=== PATIENT | female | born 1945 | race Caucasian/White ===

== ENCOUNTER 2018-10-25 11:30 | Emergency (ER) | payer BC ==
--- OUTSIDE RECORDS SUMMARY | 2018-10-25 11:35 | XMS REPORT | Clinical Summary ---
:1945 Author Organization [facility] Address [address] [place] [address] Care Team Providers Name Role Phone Asked, No Pcp Primary Care Provider Unavailable Allergies Active Allergy Reactions Severity Noted Date Comments Adhesive 05/19/2017 Povidone-Iodine Itching 05/25/2017 Flu Vaccine 2011 (36 Mos+)(Pf) 05/25/2017 Latex Itching 05/25/2017 Medications Medication Sig Dispensed Refills Start Date End Date Status levothyroxine Take 50 mcg by 0 Active (SYNTHROID, LEVOXYL) 50 mouth every mcg tablet morning. loratadine (CLARITIN) 10 Take 10 mg by 0 Active mg tablet mouth daily. LORATADINE (CLARITIN Take by mouth. 0 Active ORAL) Active Problems Problem Noted Date Multinodular goiter 05/25/2017 Social History Tobacco Use Types Packs/Day Years Used Date Never Smoker Smokeless Tobacco: Never Used Alcohol Use Drinks/Week oz/Week Comments No Sex Assigned at Date Recorded Not on file Job Start Date Occupation Industry Not on file Not on file Not on file Travel History Travel Start Travel End No recent travel history available. Last Filed Vital Signs Not on file Plan of Treatment Health Maintenance Due Date Last Done Comments BREAST CANCER SCREENING 1996 COLONOSCOPY SCREENING 1996 SHINGLES VACCINES (#1) 1996 65+ PNEUMOCOCCAL VACCINE (1 of 2 - PCV13) 10/21/2011 INFLUENZA VACCINE 11/30/2018 Results Not on fileafter 10/24/2017 Insurance Payer Benefit Plan / Subscriber ID Effective Dates Phone Address Type Group MEDICARE MEDICARE PART A xxxxxxxxxx 2017-Present [place], [place] Medicare MEDICARE MEDICARE PART A xxxxxxxxxx 2011-Present [place], [place] Medicare BCBS BCBS CHOICE xxxxxxxxxxxxxxx 2016-Present PPO PPO/F[employer]ERAL EMPL PPO BCBS BCBS CHOICE xxxxxxxxxxxxxxx 2016-Present PPO PPO/FEDERAL EMPL PPO ([place]) [place] [address] Advance Directives Patient has advance care planning documents on file. For more information, please contact:Danny Rousseau[address] [place] [address]
--- NOTE | 2018-10-25 12:07 | RAD REPORT ---
EXAM DESCRIPTION: CT - Ct Stroke Brain Wo Cont - 10/25/2018 11:56 am CLINICAL HISTORY: r/o cva Headache, drowsiness, CVA symptomology COMPARISON: HEAD BRAIN W O CONTRAST dated 08/31/1998 TECHNIQUE: All CT scans are performed using dose optimization technique as appropriate and may inclu de automated exposure control or mA/KV adjustment according to patient size. FINDINGS: No intracranial hemorrhage, hydrocephalus or extra-axial fluid collection.No areas of brai n edema or evidence of midline shift. The paranasal sinuses and mastoids are essentially clear. The calvarium is intact. IMPRESSION: No acute intracranial abnormality. The findings were discussed with BENNY Snyder on 10/25/2018 at 11:45 a.m. by telephone.
[2018-10-25 12:09] LABS: Basophils % 0.8 % (0-1.3); Eosinophils % 1.3 % (0-4.4); Hematocrit 47.3 % (36.0-45.0); Lymphocytes % 34.8 % (15.3-44.8); MPV 9.5 fL (7.6-11.3); Monocytes % 6.1 % (3.3-12.3); RBC Red Blood Cell Count 5.27 M/uL (3.86-4.86)
[2018-10-25] MEDS ORDERED: ONDANSETRON 4 MG/2 ML VIAL ONE ×3 (12:10→12:30)
[2018-10-25 12:13] LABS: Protime INR 0.89
[2018-10-25 12:18] LABS: Potassium 3.6 mmol/L (3.5-5.1)
--- NOTE | 2018-10-25 12:22 | RAD REPORT ---
EXAM DESCRIPTION: RAD - Chest Single View - 10/25/2018 12:12 pm CLINICAL HISTORY: weakness Chest pain. COMPARISON: CHEST SINGLE VIEW dated 07/18/2012; CHEST SINGLE VIEW dated 04/15/2012 FINDINGS: Portable technique limits examination quality. Small rounded opacity is present in the left lung base which may represent a small area of developing infiltrate/aspiration. A small mass is not excluded. The heart is normal in size. No displaced fract ures.CT chest followup would be useful for further assessment.
[2018-10-25] MEDS ORDERED: MECLIZINE HCL 12.5 MG TAB ONE (12:24)
[2018-10-25] MEDS ORDERED: DIAZEPAM 2 MG TABLET ONE (12:24)
--- NOTE | 2018-10-25 12:24 | EKG ---
Test Date: 2018-10-25 Test Time: 11:52:04 B2B Appointment Setter: DWIGHT MEASUREMENT RESULTS: Intervals: Rate: 83 DC: 184 QRSD: 96 QT: 454 QTc: 533 [place]: P: 72 DC: 184 QRS: -41 T: 44 INTERPRETIVE STATEMENTS: Sinus rhythm with occasional premature supraventricular complexes Left axis deviation Abnormal ECG Compared to ECG 04/15/2012 05:36:26 Sinus arrhythmia no longer present PAC s now present Electronically Signed On 10-25-18 12:23:24 CDT by Malcolm Carvalho
[2018-10-25] MEDS ORDERED: DIAZEPAM 10 MG/2 ML INJ SYRINGE ONE (12:31)
[2018-10-25] MEDS ORDERED: PROMETHAZINE 25 MG/ML VIAL ONE ×4 (13:20→20:40)
--- NOTE | 2018-10-25 14:21 | RAD REPORT ---
EXAM DESCRIPTION: CT - Head angio - 10/25/2018 2:13 pm CLINICAL HISTORY: DIZZINESS Headache, drowsiness, CVA symptomology COMPARISON: Ct Stroke Brain Wo Cont dated 10/25/2018; HEAD BRAIN W O CONTRAST dated 08/31/1998 TECHNIQUE: CT angiography of the head was performed with MIPs. All CT scans are performed using dose optimization technique as appropriate and may include automated exposure control or mA/KV adjustment according to patient size. FINDINGS: No evidence of aneurysm is detected. No flow-limiting stenosis or vascular malformation id entified. Antegrade flow is seen in the vertebral arteries. The vertebral arteries patent, with mild left-sided dominance. The visualized dural venous sinuses are patent. IMPRESSION: No significant flow abnormality is detected.
--- NOTE | 2018-10-25 14:23 | RAD REPORT ---
EXAM DESCRIPTION: CT - Neck Angio - 10/25/2018 2:14 pm CLINICAL HISTORY: dizziness Headache, drowsiness, CVA symptomology. COMPARISON: CT HEAD CSPINE MPR WO CONTRAST dated 07/18/2012 TECHNIQUE: CT angiography of the neck vessels was performed with MIPs. All CT scans are performed using dose optimization technique as appropriate and may include automated exposure control or mA/KV adjustment according to patient size. FINDINGS: A left aortic arch is identified with normal three vessel configuration of the great vesse ls. No significant flow abnormality is seen of the common carotid bilaterally. No significant stenosis is identified involving the cervical segments of both internal carotid arteri es. Mild atheromatous plaquing is present involving both carotid bulbs. Normal flow is seen within both vertebral arteries, with left-sided dominant vertebral artery noted. IMPRESSION: No significant flow abnormality of the neck vessels is identified.
--- NOTE | 2018-10-25 14:38 | EDPHYS ---
Physician Documentation [facility] Name: Ryann Barajas Age: 73 yrs Sex: Female : 1945 Arrival Date: 10/25/2018 Time: 11:33 Bed 24 Private MD: Kaushik Horner V ED Physician Mahad Saavedra HPI: 10/25 11:55 This 73 yrs old Female presents to ER via Wheelchair with complaints of jr8 Nausea, Dizziness. 11:55 Onset: The symptoms/episode began/occurred acutely, today. Associated signs and jr8 symptoms: Pertinent positives:. 11:55 The patient presents to the emergency department with a speech or higher order brain jr8 function problem, aphasia, that is mild. Onset: The symptoms/episode began/occurred acutely, today, at 10:30. Context: occurred at home, occurred while the patient was at rest. Associated signs and symptoms: Pertinent positives: dizziness, nausea. Severity of symptoms: At their worst the symptoms were moderate in the emergency department the symptoms are unchanged. Patient's baseline: Neuro: alert and fully oriented, Motor: no deficits, Ambulation: walks without assistance, Speech: normal. Current symptoms: Currently, the patient is not experiencing any symptoms, the patient feels back to baseline, no decreased level of consciousness, no confusion, no dysphasia, no headache, no paralysis, no visual changes. The patient has not experienced similar symptoms in the past. The patient has not recently seen a physician. Family stated that patient had sudden onset of trouble talking, numbness to left arm, and dizziness. Has had vetigo in past but never has had symptoms like this in past. Historical: - Allergies: 11:50 No Known Allergies; aa5 - Home Meds: 11:50 levothyroxine 100 mcg tab once daily [Active]; aa5 - PMHx: 11:50 vertigo; Thyroid problem; aa5 - PSHx: 11:50 Thyroidectomy; aa5 - Immunization history:: Flu vaccine status is unknown. - Ebola Screening: : No symptoms or risks identified at this time. - Social history:: Smoking status: unknown. ROS: 11:55 Eyes: Negative for injury, pain, redness, and discharge, ENT: Negative for injury, jr8 pain, and discharge, Neck: Negative for injury, pain, and swelling, Cardiovascular: Negative for chest pain, palpitations, and edema, Respiratory: Negative for shortness of breath, cough, wheezing, and pleuritic chest pain, Abdomen/GI: Negative for abdominal pain, diarrhea, and constipation. Positive for nausea and vomiting Back: Negative for injury and pain, MS/Extremity: Negative for injury and deformity, Skin: Negative for injury, rash, and discoloration. 11:55 Neuro: Positive for dizziness, numbness, speech changes. Exam: 11:55 Eyes: Pupils equal round and reactive to light, extra-ocular motions intact. Lids and jr8 lashes normal. Conjunctiva and sclera are non-icteric and not injected. Cornea within normal limits. Periorbital areas with no swelling, redness, or edema. ENT: Nares patent. No nasal discharge, no septal abnormalities noted. Tympanic membranes are normal and external auditory canals are clear. Oropharynx with no redness, swelling, or masses, exudates, or evidence of obstruction, uvula midline. Mucous membranes moist. Neck: Trachea midline, no thyromegaly or masses palpated, and no cervical lymphadenopathy. Supple, full range of motion without nuchal rigidity, or vertebral point tenderness. No Meningismus. Cardiovascular: Regular rate and rhythm with a normal S1 and S2. No gallops, murmurs, or rubs. Normal PMI, no JVD. No pulse deficits. Respiratory: Lungs have equal breath sounds bilaterally, clear to auscultation and percussion. No rales, rhonchi or wheezes noted. No increased work of breathing, no retractions or nasal flaring. Abdomen/GI: Soft, non-tender, with normal bowel sounds. No distension or tympany. No guarding or rebound. No evidence of tenderness throughout. Back: No spinal tenderness. No costovertebral tenderness. Full range of motion. MS/ Extremity: Pulses equal, no cyanosis. Neurovascular intact. Full, normal range of motion. 11:55 Skin: Appearance: Color: normal in color, Temperature: cool, Moisture: diaphoretic. 11:55 Neuro: Orientation: to person, place, time \T\ situation. Mentation: is normal, Memory: is normal, immediate memory is intact, recent memory is intact, remote memory is intact, Cranial nerves: CN I not tested, CN II- XII are normal as tested, visual min are intact. extraocular movements are intact, Facial palsy and sensory deficits are absent. Speech is clear and appropriate. Tongue strength is normal, Cerebellar function: dysmetria is noted on the left, Motor: moves all fours, strength is 5/5 in all extremities, Sensation: no obvious gross deficits, Gait: not tested. seizure activity, is not displayed by the patient, Abnormal movements: there are no abnormal movements. Vital Signs: 11:36 BP 180 / 66; Pulse 89; Resp 16; Temp 97.5; Pulse Ox 98% on R/A; Weight 81.65 kg; Height aj 5 ft. 4 in. (162.56 cm); 11:48 BP 155 / 89; Pulse 81; Resp 16 S; Temp 96.1(A); Pulse Ox 98% on R/A; Pain 0/10; aa5 12:00 BP 121 / 98; Pulse 81; Resp 14 S; Pulse Ox 98% on R/A; Pain 0/10; aa5 12:16 BP 137 / 56; Pulse 82; Resp 14 S; Pulse Ox 97% on R/A; Pain 0/10; aa5 12:30 BP 134 / 69; Pulse 81; Resp 12 S; Pulse Ox 98% on 2 lpm NC; Pain 0/10; aa5 13:02 BP 147 / 94; Pulse 75; Resp 21 S; Pulse Ox 100% on R/A; mg2 13:58 BP 153 / 90; Pulse 75; Resp 18; Pulse Ox 100% on R/A; mg2 14:31 BP 128 / 75; Pulse 82; Resp 18; Temp 96.1(A); Pulse Ox 100% 3 lpm ; mg2 16:45 BP 149 / 80; Pulse 87; Resp 18; Temp 97.8; Pulse Ox 100% on R/A; mg2 18:21 BP 122 / 91; Pulse 87; Resp 18; Temp 97.6(A); Pulse Ox 100% 3 lpm ; mg2 19:30 BP 136 / 76; Pulse 85; Resp 17 S; Temp 98.5(A); Pulse Ox 100% on 3 lpm NC; cc3 20:30 BP 126 / 73; Pulse 86; Resp 18 S; Pulse Ox 100% on 3 lpm NC; cc3 11:36 Body Mass Index 30.90 (81.65 kg, 162.56 cm) 11:48 Unable to obtain oral or temporal temperature at this time. aa5 14:31 warm blanket given to the patient. mg2 NIH Stroke Scale Scores: 11:48 NIHSS Score: 1 aa5 11:55 NIHSS Score: 1 jr8 MDM: 11:46 Patient medically screened. 8 12:00 ED course: Patient has NIH of one. Possible that it is small posterior circulation jr8 strove vs. Vertigo. Symptoms improving and now without speech deficit or any other focal deficit. tPA not advised at this time due to improving mild symptoms . 13:02 ED course: MRI delayed because we cannot get patient to stop vomiting . 8 14:34 Data reviewed: vital signs, nurses notes, lab test result(s), EKG, radiologic studies, [facility] CT scan, plain films. Data interpreted: Pulse oximetry: on. Counseling: I had a detailed discussion with the patient and/or guardian regarding: the historical points, exam findings, and any diagnostic results supporting the discharge/admit diagnosis, lab results, radiology results, the need for further work-up and treatment in the hospital. ED course: Consulted Dr. Hui who will see patient but Dr. Horner requests transfer at this time . 18:04 ED course: [facility] decline due to capacity. Dr. Reynoso accepted at [facility] . [facility] 10/25 12:02 Order name: Basic Metabolic Panel; Complete Time: 12:34 10/25 12:02 Order name: CBC with Diff; Complete Time: 12:14 10/25 11:53 Order name: CT Stroke Brain w/o Contrast; Complete Time: 12:34 ca 10/25 12:02 Order name: Protime (+inr); Complete Time: 12:34 10/25 12:02 Order name: Ptt, Activated; Complete Time: 12:34 10/25 15:25 Order name: Urine Dipstick--Ancillary (enter results); Complete Time: 15:52 ca 10/25 12:02 Order name: Stroke CXR 1 View; Complete Time: 12:34 10/25 12:05 Order name: MRI - Brain Wo Cont; Complete Time: 17:10 10/25 13:51 Order name: CT Head Angio; Complete Time: 14:30 10/25 13:51 Order name: CT Neck Angio; Complete Time: 14:30 jr8 10/25 12:02 Order name: EKG; Complete Time: 12:04 10/25 12:02 Order name: Accucheck; Complete Time: 12:07 10/25 12:02 Order name: Cardiac monitoring; Complete Time: 12:07 10/25 12:02 Order name: EKG - Nurse/Tech; Complete Time: 12:07 10/25 12:02 Order name: IV Saline Lock; Complete Time: 12:07 10/25 12:02 Order name: Labs collected and sent; Complete Time: 12:07 10/25 12:02 Order name: NPO; Complete Time: 12:10/25 12:02 Order name: O2 Per Protocol; Complete Time: 12:10/25 12:02 Order name: O2 Sat Monitoring; Complete Time: 12:07 10/25 12:02 Order name: Stroke Swallow Screen; Complete Time: 14:21 aa5 Administered Medications: 11:56 Drug: Zofran 4 mg {Note: VO received at 1155.} Route: IVP; Site: right antecubital; aa5 12:20 Follow up: Response: No adverse reaction; Vomiting unchanged mg2 12:21 Drug: Valium 2 mg Route: IVP; Site: right antecubital; aa5 14:41 Follow up: Response: No adverse reaction mg2 12:21 Drug: Zofran 4 mg Route: IVP; Site: right antecubital; aa5 13:00 Follow up: Response: No adverse reaction; Nausea unchanged mg2 13:09 Drug: Phenergan 6.25 mg Route: IVP; Site: right antecubital; mg2 13:45 Follow up: Response: No adverse reaction; Marked relief of symptoms mg2 13:57 Drug: Phenergan 6.25 mg Route: IVP; Site: right antecubital; mg2 14:40 Follow up: Response: No adverse reaction; Marked relief of symptoms mg2 14:20 Drug: Meclizine 25 mg Route: PO; mg2 17:10 Follow up: Response: No adverse reaction; Marked relief of symptoms mg2 16:35 Drug: Phenergan 6.25 mg Route: IVP; Site: right antecubital; ca1 17:07 Follow up: Response: No adverse reaction; Marked relief of symptoms mg2 17:20 Drug: foLIC Acid 1 mg Route: IVPB; Site: right antecubital; mg2 18:21 Follow up: IV Status: Completed infusion mg2 17:20 Drug: Aspirin 81 mg Route: PO; mg2 18:21 Follow up: Response: No adverse reaction mg2 18:29 Drug: Lipitor 80 mg Route: PO; mg2 19:02 Follow up: Response: No adverse reaction; Marked relief of symptoms mg2 20:35 Drug: Phenergan 6.25 mg Route: IVP; Site: right antecubital; cc3 20:45 Follow up: Response: No adverse reaction; Nausea is decreased cc3 Point of Care Testing: Blood Glucose: 11:50 Blood Glucose: 155 mg/dL; aa5 Ranges: Critical Glucose Levels:Adult <50 mg/dl or >400 mg/dl <40 mg/dl or >180 mg/dl Disposition: 10/26 10:25 Co-signature as Attending Physician, Mahad Saavedra MD I agree with the assessment and kdr plan of care. Disposition: 10/25/18 17:[address] [facility]. Diagnosis are Cerebral infarction, Vertigo of central origin. - Reason for transfer: Higher level of care. - Accepting physician is Dr. Reynoso. - Condition is Stable. - Problem is new. - Symptoms have improved. NIH Stroke Scale - NIH Stroke Score Date: 10/25/2018 Time: 11:48 Total Score = 1 1a. Level of Consciousness (LOC) - 0(Alert) 1b. Level of Consciousness (LOC) (Year \T\ Age) - 0(Both) 1c. LOC Commands (Open \T\ Closes Eyes/Tile Decorator) - 0(Both) 2. Best Gaze (Lateral Gaze Paresis) - 0(Normal) 3. Visual Field Loss - 0(No visual loss) 4. Facial Palsy - 0(Normal) 5a. Left Arm: Motor (10-second hold) - 0(No drift) 5b. Right Arm: Motor (10-second hold) - 0(No drift) 6a. Left Leg: Motor (5-second hold - always test supine) - 0(No drift) 6b. Right Leg: Motor (5-second hold - always test supine) - 0(No drift) 7. Limb Ataxia (finger/nose \T\ heel/luu - test with eyes open) - 1(Present in one limb) 8. Sensory Loss (pinprick arms/legs/face) - 0(Normal) 9. Best Language: Aphasia (description/naming/reading) - 0(No aphasia) 10. Dysarthria (speech clarity - read or repeat words) - 0(Normal) 11. Extinction and Inattention (visual/tactile/auditory/spatial/personal) - 0(No abnormality) Initials: aa5 NIH Stroke Scale - NIH Stroke Score Date: 10/25/2018 Time: 11:55 Total Score = 1 1a. Level of Consciousness (LOC) - 0(Alert) 1b. Level of Consciousness (LOC) (Year \T\ Age) - 0(Both) 1c. LOC Commands (Open \T\ Closes Eyes/Tile Decorator) - 0(Both) 2. Best Gaze (Lateral Gaze Paresis) - 0(Normal) 3. Visual Field Loss - 0(No visual loss) 4. Facial Palsy - 0(Normal) 5a. Left Arm: Motor (10-second hold) - 0(No drift) 5b. Right Arm: Motor (10-second hold) - 0(No drift) 6a. Left Leg: Motor (5-second hold - always test supine) - 0(No drift) 6b. Right Leg: Motor (5-second hold - always test supine) - 0(No drift) 7. Limb Ataxia (finger/nose \T\ heel/luu - test with eyes open) - 1(Present in one limb) 8. Sensory Loss (pinprick arms/legs/face) - 0(Normal) 9. Best Language: Aphasia (description/naming/reading) - 0(No aphasia) 10. Dysarthria (speech clarity - read or repeat words) - 0(Normal) 11. Extinction and Inattention (visual/tactile/auditory/spatial/personal) - 0(No abnormality) Initials: jr8 Signatures: Dispatcher [employer] EDMS Mahad Saavedra MD MD [facility] Rupinder Maynard RN RN aa5 Stuart Leal PA PA jr8 Shawn Olmedo RN RN mg2 Elizabeth Barrera cc3 Beryl Fitzgerald RN RN ca1 Corrections: (The following items were deleted from the chart) 10/25 14:35 12:20 ED course: Patient has NIH of one. Possible that it is small posterior jr8 circulation strove vs. Vertigo. Symptoms improving and now without speech deficit or any other focal deficit. tPA not advised at this time due to improving mild symptoms . jr8 17:17 14:36 Hospitalization Ordered by Kaushik Horner MD for Inpatient Admission. jr8 Preliminary diagnosis is Dizziness; Vomiting; Cerebral infarction. Bed requested for Telemetry/MedSurg (Inpatient). Status is Inpatient Admission. Condition is Stable. Problem is new. Symptoms have improved. UTI on Admission? No. jr8 18:05 14:34 ED course: Consulted Dr. Hui who will see patient . jr8 jr8 18:21 17:17 10/25/2018 17:[address] [facility]. jr8 Diagnosis is Cerebral infarction; Vertigo of central origin. Reason for transfer: Higher level of care. Accepting physician is [facility]. Condition is Stable. Problem is new. Symptoms have improved. jr8 20:46 18:21 10/25/2018 17:[address] [facility]. cc3 Diagnosis is Cerebral infarction; Vertigo of central origin. Reason for transfer: Higher level of care. Accepting physician is Dr. Reynoso. Condition is Stable. Problem is new. Symptoms have improved. jr8
--- NOTE | 2018-10-25 14:38 | ER ---
Nurse's Notes [facility] Name: Ryann Barajas Age: 73 yrs Sex: Female : 1945 Arrival Date: 10/25/2018 Time: 11:33 Bed 24 Private MD: Kaushik Horner V Diagnosis: Cerebral infarction;Vertigo of central origin Presentation: 10/25 11:36 Presenting complaint: Patient states: Dizziness, headache, N/V that started 1 hour ago. aj Reports numbness to left hand, Patient able to move left hand with no difficulty in triage. 11:36 Acuity: MORIS 2 aj 11:36 Onset of symptoms was October 25, 2018 at 10:30. aj 11:37 An acute neurological deficit is present. Pre-hospital glucose is not applicable to aa5 this patient. 11:37 Transition of care: patient was not received from another setting of care. Risk aa5 Assessment: Do you want to hurt yourself or someone else? Patient reports no desire to harm self or others. Initial Sepsis Screen: Does the patient meet any 2 criteria? No. Patient's initial sepsis screen is negative. Does the patient have a suspected source of infection? No. Patient's initial sepsis screen is negative. Care prior to arrival: None. 11:37 Method Of Arrival: Wheelchair aa5 Triage Assessment: 11:48 The onset of the patients symptoms was October 25, 2018 at 10:30. aa5 Stroke Activation: Symptom onset < 3 hours Physician: Stroke Attending; Name: ; Notified At: ; Arrived At: Physician: Chief Stroke Resident; Name: ; Notified At: ; Arrived At: Physician: Stroke Resident; Name: ; Notified At: ; Arrived At: Physician: ED Attending; Name: ; Notified At: ; Arrived At: Physician: ED Resident; Name: ; Notified At: ; Arrived At: Historical: - Allergies: 11:50 No Known Allergies; aa5 - Home Meds: 11:50 levothyroxine 100 mcg tab once daily [Active]; aa5 - PMHx: 11:50 vertigo; Thyroid problem; aa5 - PSHx: 11:50 Thyroidectomy; aa5 - Immunization history:: Flu vaccine status is unknown. - Ebola Screening: : No symptoms or risks identified at this time. - Social history:: Smoking status: unknown. Screenin:00 Abuse screen: Denies threats or abuse. Nutritional screening: No deficits noted. aa5 Tuberculosis screening: No symptoms or risk factors identified. Fall Risk Fall in past 12 months (25 points). Secondary diagnosis (15 points) dizziness at this time . IV access (20 points). Total Llamas Fall Scale indicates High Risk Score (45 or more points). Fall prevention measures have been instituted. Side Rails Up X 2 Placed Close to Nursing Station. Assessment: 11:37 Reassessment: Pt taken to CT via wheelchair, accompanied by Gauri Manzanares RN. aa5 11:46 T-PA (Activase) Screening: Indications: No evidence of intracranial hemorrhage or CT of aa5 head and no evidence of peripheral hemorrhage or recent CVA: Yes. 11:48 Reassessment: Pt back from CT. aa5 11:48 General: Appears uncomfortable, Behavior is calm, cooperative. Pain: Denies pain. aa5 Neuro: Level of Consciousness is awake, alert, obeys commands, Oriented to person, place, time, situation, Emergency Service Worker are equal bilaterally Moves all extremities. Speech is normal, Facial symmetry appears normal, Pupils are PERRLA, Reports dizziness, generalized weakness. . Denies blurred vision paresthesias numbness headache. Cardiovascular: Heart tones S1 S2 present Rhythm is regular. Respiratory: Airway is patent Respiratory effort is even, unlabored, Respiratory pattern is regular, symmetrical. GI: Abdomen is round non-distended, Bowel sounds present X 4 quads. Abd is soft and non tender X 4 quads. Reports nausea, vomiting. : No signs and/or symptoms were reported regarding the genitourinary system. EENT: No signs and/or symptoms were reported regarding the EENT system. Derm: Skin is diaphoretic, Skin is pale, Skin temperature is cool. Musculoskeletal: Range of motion: intact in all extremities. 11:48 VAN Scoring: Arm Drift: Patients demonstrates NO arm weakness. Patient is VAN Negative. aa5 12:20 Reassessment: Pt c/o nausea. Pt refusing bedside swallow screen. PA notified of pt's aa5 refusal for bedside swallow screen and notified of inability to administer PO medications at this time. See MAR. . 12:20 Neuro: Level of Consciousness is awake, alert, obeys commands, Oriented to person, aa5 place, time, situation, Emergency Service Worker are equal bilaterally Moves all extremities. Speech is normal, Facial symmetry appears normal, Pupils are PERRLA. Respiratory: Airway is patent Respiratory effort is even, unlabored, Respiratory pattern is regular, symmetrical. Derm: Skin is clammy, Skin is pale, Skin temperature is cool. 12:22 Reassessment: O2 sat noted to be 82% RA, RR 8, pt instructed to take deep breaths, O2 aa5 being administered via non-rebreather and O2 sat increased to 100%. . 12:23 Reassessment: device repair technician at bedside. BENNY was notified of O2 sat decrease after Valium aa5 administration. MRI on hold at this time. . 12:30 Reassessment: Pt drowsy, awakens easily to verbal stimuli, pt reports nausea and aa5 dizziness has improved. O2 now via NC per BENNY. Pt tolerating well at this time. Pt's at bedside. . 12:50 Reassessment: Patient is alert, oriented x 3, equal unlabored respirations, skin aa5 warm/dry/pink. Pt tolerating NC well, RR normal. MRI notified that pt is ready for transport. . 13:59 Reassessment: [phone] (). mg2 14:29 Patient has been NPO before screening. The patient is alert, and able to follow mg2 commands. The patient does not exhibit slurred or garbled speech. The patient is not exhibiting difficulty speaking. The patient does not exhibit difficulty understanding words. The patient is able to swallow own secretions with no drooling or need for suction. Patient tolerated one teaspoon of water. No drooling, immediate coughing, gurgling, or clearing of the throat was noted. The patient tolerated 90mL of water. No drooling, immediate coughing, gurgling, or clearing of the throat was noted. The patient passed the bedside swallow screening. Oral medications may be given as ordered. Contact Physician for further diet orders. 14:29 Provider notified of bedside swallow screening results: Stuart ZAPATA. mg2 14:30 Reassessment: accompanied patient to ct scan for ct angio of head and neck. mg2 14:39 Reassessment: patient agreed to be admitted by BENNY iglliland. mg2 15:03 Reassessment: MRI called but they still have patient on the table. mg2 16:44 Reassessment: accompanied patient to MRI. ca1 18:22 Reassessment: patient agreed to be transferred to [facility]. mg2 19:30 General: Appears in no apparent distress. comfortable, Behavior is calm, cooperative, cc3 appropriate for age. Pain: Denies pain. Neuro: Level of Consciousness is awake, alert, obeys commands, Oriented to person, place, time, situation, Appropriate for age Emergency Service Worker are equal bilaterally Moves all extremities. Speech is normal, Facial symmetry appears normal, Pupils are PERRLA, Intact Denies blurred vision paresthesias numbness headache. Cardiovascular: Denies chest pain, Heart tones S1 S2 present Patient's skin is warm and dry. Rhythm is regular. Respiratory: Airway is patent Respiratory effort is even, unlabored, Respiratory pattern is regular, symmetrical. GI: Abdomen is round non-distended, Bowel sounds present X 4 quads. Abd is soft and non tender X 4 quads. : No signs and/or symptoms were reported regarding the genitourinary system. EENT: No signs and/or symptoms were reported regarding the EENT system. Derm: Skin is intact, is healthy with good turgor, Skin is pink, warm \T\ dry. normal, Skin temperature is warm. Musculoskeletal: Circulation, motion, and sensation intact. Range of motion: intact in all extremities. 19:30 Reassessment: Patient appears in no apparent distress at this time. Patient and/or cc3 family updated on plan of care and expected duration. Pain level reassessed. Patient is alert, oriented x 3, equal unlabored respirations, skin warm/dry/pink. Received this female patient from morning shift LUIGI Escobar as a case of acute left cerebellar infarct for transfer to [facility]. LUIGI Escobar said she contacted [facility] but was told to call after 10 minutes because the nurse who will receive is not yet ready. Patient with IV cannula gauge 18 at the right ACV saline locked. Patient denies pain at this time. Patient states feeling better. Patient states symptoms have improved. 19:35 Reassessment: Patient appears in no apparent distress at this time. Patient and/or cc3 family updated on plan of care and expected duration. Pain level reassessed. Patient is alert, oriented x 3, equal unlabored respirations, skin warm/dry/pink. Report called and handed over to LUIGI Humphrey for continuity of care. Transfer form completed and signed by the patient herself. Ambulance contacted for transport. 20:30 Reassessment: Patient appears in no apparent distress at this time. Patient and/or cc3 family updated on plan of care and expected duration. Pain level reassessed. Patient is alert, oriented x 3, equal unlabored respirations, skin warm/dry/pink. [facility] came for patient transport. BENNY Leal ordered for Phenergan before the patient leaves. Patient denies pain at this time. 20:45 Reassessment: Patient appears in no apparent distress at this time. Patient and/or cc3 family updated on plan of care and expected duration. Pain level reassessed. Patient is alert, oriented x 3, equal unlabored respirations, skin warm/dry/pink. Patient left ER for transfer to [facility] vitally stable via [facility] stretcher with her . No valuables left bedside. Patient denies pain at this time. Patient states feeling better. Patient states symptoms have improved. Vital Signs: 11:36 BP 180 / 66; Pulse 89; Resp 16; Temp 97.5; Pulse Ox 98% on R/A; Weight 81.65 kg; Height aj 5 ft. 4 in. (162.56 cm); 11:48 BP 155 / 89; Pulse 81; Resp 16 S; Temp 96.1(A); Pulse Ox 98% on R/A; Pain 0/10; aa5 12:00 BP 121 / 98; Pulse 81; Resp 14 S; Pulse Ox 98% on R/A; Pain 0/10; aa5 12:16 BP 137 / 56; Pulse 82; Resp 14 S; Pulse Ox 97% on R/A; Pain 0/10; aa5 12:30 BP 134 / 69; Pulse 81; Resp 12 S; Pulse Ox 98% on 2 lpm NC; Pain 0/10; aa5 13:02 BP 147 / 94; Pulse 75; Resp 21 S; Pulse Ox 100% on R/A; mg2 13:58 BP 153 / 90; Pulse 75; Resp 18; Pulse Ox 100% on R/A; mg2 14:31 BP 128 / 75; Pulse 82; Resp 18; Temp 96.1(A); Pulse Ox 100% 3 lpm ; mg2 16:45 BP 149 / 80; Pulse 87; Resp 18; Temp 97.8; Pulse Ox 100% on R/A; mg2 18:21 BP 122 / 91; Pulse 87; Resp 18; Temp 97.6(A); Pulse Ox 100% 3 lpm ; mg2 19:30 BP 136 / 76; Pulse 85; Resp 17 S; Temp 98.5(A); Pulse Ox 100% on 3 lpm NC; cc3 20:30 BP 126 / 73; Pulse 86; Resp 18 S; Pulse Ox 100% on 3 lpm NC; cc3 11:36 Body Mass Index 30.90 (81.65 kg, 162.56 cm) aj 11:48 Unable to obtain oral or temporal temperature at this time. aa5 14:31 warm blanket given to the patient. mg2 NIH Stroke Scale Scores: 11:48 NIHSS Score: 1 aa5 11:55 NIHSS Score: 1 jr8 ED Course: 11:33 Patient arrived in ED. as 11:33 Kaushik Horner MD is Private Physician. as 11:37 Triage completed. aj 11:44 Rupinder Maynard, LUIGI is Primary Nurse. aa5 11:46 Stuart Leal PA is PHCP. jr8 11:46 Mahad Saavedra MD is Attending Physician. jr8 11:48 Patient has correct armband on for positive identification. Placed in gown. Bed in low aa5 position. Call light in reach. Side rails up X2. Adult w/ patient. residential monitor on. Pulse ox on. NIBP on. 11:48 Arm band placed on. aa5 11:50 EKG done, by wellfield technician. reviewed by Stuart ZAPATA. tc 11:51 Initial lab(s) drawn, by ca, sent to lab. Inserted saline lock: 18 gauge in right aa5 antecubital area, using aseptic technique. Blood collected. 11:56 CT Stroke Brain w/o Contrast In Process Unspecified. EDMS 12:10 X-ray completed. Portable x-ray completed in exam room. Patient tolerated procedure sw well. 12:13 Stroke CXR 1 View In Process Unspecified. EDMS 12:55 Report given to LUIGI Escobar. aa5 14:13 CT Head Angio In Process Unspecified. EDMS 14:13 CT Neck Angio In Process Unspecified. EDMS 14:30 No provider procedures requiring assistance completed. mg2 14:35 Kaushik Horner MD is Hospitalizing Provider. jr8 15:19 Door closed. Warm blanket given. Assisted with bedpan. mg2 16:30 MRI - Brain Wo Cont In Process Unspecified. EDMS 20:45 Patient transferred, IV remains in place. cc3 Administered Medications: 11:56 Drug: Zofran 4 mg {Note: VO received at 1155.} Route: IVP; Site: right antecubital; aa5 12:20 Follow up: Response: No adverse reaction; Vomiting unchanged mg2 12:21 Drug: Valium 2 mg Route: IVP; Site: right antecubital; aa5 14:41 Follow up: Response: No adverse reaction mg2 12:21 Drug: Zofran 4 mg Route: IVP; Site: right antecubital; aa5 13:00 Follow up: Response: No adverse reaction; Nausea unchanged mg2 13:09 Drug: Phenergan 6.25 mg Route: IVP; Site: right antecubital; mg2 13:45 Follow up: Response: No adverse reaction; Marked relief of symptoms mg2 13:57 Drug: Phenergan 6.25 mg Route: IVP; Site: right antecubital; mg2 14:40 Follow up: Response: No adverse reaction; Marked relief of symptoms mg2 14:20 Drug: Meclizine 25 mg Route: PO; mg2 17:10 Follow up: Response: No adverse reaction; Marked relief of symptoms mg2 16:35 Drug: Phenergan 6.25 mg Route: IVP; Site: right antecubital; ca1 17:07 Follow up: Response: No adverse reaction; Marked relief of symptoms mg2 17:20 Drug: foLIC Acid 1 mg Route: IVPB; Site: right antecubital; mg2 18:21 Follow up: IV Status: Completed infusion mg2 17:20 Drug: Aspirin 81 mg Route: PO; mg2 18:21 Follow up: Response: No adverse reaction mg2 18:29 Drug: Lipitor 80 mg Route: PO; mg2 19:02 Follow up: Response: No adverse reaction; Marked relief of symptoms mg2 20:35 Drug: Phenergan 6.25 mg Route: IVP; Site: right antecubital; cc3 20:45 Follow up: Response: No adverse reaction; Nausea is decreased cc3 Point of Care Testing: Blood Glucose: 11:50 Blood Glucose: 155 mg/dL; aa5 Ranges: Output: 15:20 Urine: 200ml (Voided); Total: 200ml. mg2 Outcome: 14:36 Decision to Hospitalize by Provider. jr8 17:17 ER care complete, transfer ordered by . jr8 20:45 Transferred by ground EMS to [facility], Transfer form completed. cc3 20:45 Condition: stable 20:45 Instructed on the need for transfer, Demonstrated understanding of instructions. 20:46 Patient left the ED. cc3 NIH Stroke Scale - NIH Stroke Score Date: 10/25/2018 Time: 11:48 Total Score = 1 1a. Level of Consciousness (LOC) - 0(Alert) 1b. Level of Consciousness (LOC) (Year \T\ Age) - 0(Both) 1c. LOC Commands (Open \T\ Closes Eyes/Car Rental Agency Manager) - 0(Both) 2. Best Gaze (Lateral Gaze Paresis) - 0(Normal) 3. Visual Field Loss - 0(No visual loss) 4. Facial Palsy - 0(Normal) 5a. Left Arm: Motor (10-second hold) - 0(No drift) 5b. Right Arm: Motor (10-second hold) - 0(No drift) 6a. Left Leg: Motor (5-second hold - always test supine) - 0(No drift) 6b. Right Leg: Motor (5-second hold - always test supine) - 0(No drift) 7. Limb Ataxia (finger/nose \T\ heel/luu - test with eyes open) - 1(Present in one limb) 8. Sensory Loss (pinprick arms/legs/face) - 0(Normal) 9. Best Language: Aphasia (description/naming/reading) - 0(No aphasia) 10. Dysarthria (speech clarity - read or repeat words) - 0(Normal) 11. Extinction and Inattention (visual/tactile/auditory/spatial/personal) - 0(No abnormality) Initials: aa5 NIH Stroke Scale - NIH Stroke Score Date: 10/25/2018 Time: 11:55 Total Score = 1 1a. Level of Consciousness (LOC) - 0(Alert) 1b. Level of Consciousness (LOC) (Year \T\ Age) - 0(Both) 1c. LOC Commands (Open \T\ Closes Eyes/Car Rental Agency Manager) - 0(Both) 2. Best Gaze (Lateral Gaze Paresis) - 0(Normal) 3. Visual Field Loss - 0(No visual loss) 4. Facial Palsy - 0(Normal) 5a. Left Arm: Motor (10-second hold) - 0(No drift) 5b. Right Arm: Motor (10-second hold) - 0(No drift) 6a. Left Leg: Motor (5-second hold - always test supine) - 0(No drift) 6b. Right Leg: Motor (5-second hold - always test supine) - 0(No drift) 7. Limb Ataxia (finger/nose \T\ heel/luu - test with eyes open) - 1(Present in one limb) 8. Sensory Loss (pinprick arms/legs/face) - 0(Normal) 9. Best Language: Aphasia (description/naming/reading) - 0(No aphasia) 10. Dysarthria (speech clarity - read or repeat words) - 0(Normal) 11. Extinction and Inattention (visual/tactile/auditory/spatial/personal) - 0(No abnormality) Initials: sintia Signatures: Dispatcher [employer] EDMS Gauri Manzanares, RN RN Kaela Malcolm Audri, RN RN aa5 Stuart Leal PA PA jr8 Herlinda Babin, smoke and flame specialist EKG Ttc Emily Mai Michele, RN RN mg2 Elizabeth Barrera cc3 Beryl Fitzgerald RN RN ca1 Corrections: (The following items were deleted from the chart) 12:41 12:30 BP 134 / 69; Pulse 81bpm; Resp 12bpm; Spontaneous; Pulse Ox 100% 02 2% aa5 Non-rebreather mask; Pain 0/10; aa5 14:42 14:31 Pulse 82bpm; Resp 18bpm; Pulse Ox 100% 3 lpm; Temp 96.1F Axillary; warm mg2 blanket given to the patient. ; mg2 17:07 16:45 Pulse 87bpm; Resp 18bpm; Pulse Ox 100% RA; Temp 97.8F; ca1 mg2
[2018-10-25 15:44] LABS: Urine Blood NEGATIVE (NEG); Urine Glucose TRACE (NEG); Urine Protein NEGATIVE (NEG); Urine Specific Gravity 1.015 (1.005-1.030); Urine pH 7.5 (5.0-7.0)
--- NOTE | 2018-10-25 16:55 | RAD REPORT ---
EXAM DESCRIPTION: MRI - Brain Wo Cont - 10/25/2018 4:35 pm CLINICAL HISTORY: Numbness COMPARISON: October 25, [address] TECHNIQUE: Axial, sagittal, and coronal magnetic images of the brain were obtained. Contrast was not requested FINDINGS: Diffusion-weighted/ADC mapping demonstrates a small areas of abnormal signal within the left cerebell ar vermis measuring a few millimeters having the appearance of acute infarction. . Small areas of abnormal signal within the right cerebellum has the appearance of old infarcts. Mild signal within periventricular, deep and subcortical white matter likely ischemic changes seconda ry to small vessel disease The ventricles are normal caliber. An extra-axial fluid collection is not present The sinuses and mastoids are clear. IMPRESSION: Small acute left cerebellar infarct
[2018-10-25] MEDS ORDERED: ASPIRIN 81 MG CHEWABLE TABLET ONE (17:32)
[2018-10-25] MEDS ORDERED: FOLIC ACID 5 MG/ML VIAL ONE (17:33)
[2018-10-25] MEDS ORDERED: NA CHLORIDE 0.9% 50 ML IV ONE (17:33)
[2018-10-25] MEDS ORDERED: ATORVASTATIN 20 MG TAB ONE (18:39)
[2018-10-25 21:06] VITALS: O2SAT 100
[2018-10-25 21:13] VITALS: BP 122/91; TEMP 97.6
== END 2018-10-25 20:46 | disposition short-term general hospital (02) ==
LOC: ER 11:30
DX: I63.9 Cerebral infarction, unspecified (principal); H81.49 Vertigo of central origin, unspecified ear; E07.9 Disorder of thyroid, unspecified
CPT/HCPCS: 36415; 70450; 70496; 70498; 70551; 71045; 80048; 81003; 85025; 85610; 85730; 93005; 96365; 96375; 99285; J2405; J2550; J3360; Q9967

== ENCOUNTER 2019-04-16 06:57 | Day surgery (SDC) | payer BC ==
[2019-04-13 11:16] LABS: Absolute Lymphocytes (CBC) 2.2 K/uL (0.7-4.9); Basophils % 1.1 % (0-1.3); Lymphocytes % 26.6 % (15.3-44.8); RBC Red Blood Cell Count 4.89 M/uL (3.86-4.86)
[2019-04-13 11:21] LABS: Protime INR 0.92
[2019-04-13 11:44] LABS: Potassium 4.4 mmol/L (3.5-5.1)
--- NOTE | 2019-04-13 11:55 | RAD REPORT ---
EXAM DESCRIPTION: Ramón Bruce And Lena (2 Views)04/13/2019 11:23 am CLINICAL HISTORY: Preop for cardiac catheterization/hypertension COMPARISON: September 2018 FINDINGS: A few areas of scarring are present within the left lung base The lungs appear clear of acute infiltrate. The heart is normal size Loop recorder in place IMPRESSION: No acute abnormalities displayed
--- OUTSIDE RECORDS SUMMARY | 2019-04-16 06:59 | XMS REPORT | Summary of Care ---
:1945 Author Organization [facility] [place] [address] Care Team Providers Name Role Phone Kaushik Horner MD Primary Care Provider Reason for Visit Reason Comments Cardiology Follow-up Encounter Details Date Type Department Care Team Description [facility] [id number] [place] [address] [address] [place] [address] [phone] Allergies Active Allergy Reactions Severity Noted Date Comments Adhesive 05/19/2017 Flu Virus Vaccine 05/25/2017 Latex Itching 05/25/2017 Povidone-Iodine Itching 05/25/2017 documented as of this encounter (statuses as of 12/22/2018) Medications Medication Sig Dispensed Refills Start Date End Date Status levothyroxine Take 1 Tab by 40 Tab 0 03/09/2018 Active (SYNTHROID) 112 MCG mouth daily. tablet levothyroxine TAKE 1 TABLET BY 1 12/11/2018 Active (SYNTHROID) 100 MCG MOUTH ONCE DAILY tablet IN THE MORNING ON AN EMPTY STOMACH atorvastatin (LIPITOR) Take 1 Tab by 90 Tab 3 12/14/2018 12/14/2019 Active 80 MG tablet mouth daily. EQ ASPIRIN LOW DOSE 81 Take 1 Tab by 90 Tab 3 12/14/2018 Active MG tablet mouth daily. documented as of this encounter (statuses as of 12/22/2018) Active Problems Problem Noted Date Multinodular goiter 08/23/2017 Multiple thyroid nodules 03/29/2017 Hypothyroidism 03/29/2017 documented as of this encounter (statuses as of 12/22/2018) Social History Tobacco Use Types Packs/Day Years Used Date Never Smoker Smokeless Tobacco: Never Used Alcohol Use Drinks/Week oz/Week Comments Yes Sex Assigned at Date Recorded Not on file Job Start Date Occupation Industry Not on file Not on file Not on file Travel History Travel Start Travel End No recent travel history available. documented as of this encounter Last Filed Vital Signs Not on filedocumented in this encounter Progress Notes Meng Antonio MD - 12/22/2018 10:15 AM CDT No chief complaint on file. History of Present Illness: Doing well. Post Linq implant (cryptogenic stroke). Interrogation unremarkable. Review of Systems Medications: atorvastatin (LIPITOR) 80 MG tablet Take 1 Tab by mouth daily. EQ ASPIRIN LOW DOSE 81 MG tablet Take 1 Tab by mouth daily. levothyroxine (SYNTHROID) 100 MCG tablet TAKE 1 TABLET BY MOUTH ONCE DAILY IN THE MORNING ON AN EMPTY STOMACH levothyroxine (SYNTHROID) 112 MCG tablet Take 1 Tab by mouth daily. Allergies Allergen Reactions Adhesive Flu Virus Vaccine Latex Itching Povidone-Iodine Itching Past Medical History: Diagnosis Date Anxiety Arthritis Cataract Jeramy's thyroiditis Hypothyroidism Multiple thyroid nodules Seasonal allergic rhinitis Past Surgical History: Procedure Laterality Date HX COLONOSCOPY HX HYSTERECTOMY HX SALIVARY GLAND SURGERY 1970 HX THYROIDECTOMY HX TONSILLECTOMY Family History Problem Relation Name Age of Onset Thyroid Disease Mother Stroke Mother Cancer Father Hearing Loss Father Thyroid Disease Paternal Grandmother Colon Cancer Other Grandfather Social History Socioeconomic History Marital status: Spouse name: Not on file Number of children: Not on file Years of education: Not on file Highest education level: Not on file Occupational History Not on file Social Needs Financial resource strain: Not on file Food insecurity: Worry: Not on file Inability: Not on file Transportation needs: Medical: Not on file Non-medical: Not on file Tobacco Use Smoking status: Never Smoker Smokeless tobacco: Never Used Substance and Sexual Activity Alcohol use: Yes Drug use: No Sexual activity: Not on file Lifestyle Physical activity: Days per week: Not on file Minutes per session: Not on file Stress: Not on file Relationships Social connections: Talks on phone: Not on file Gets together: Not on file Attends druze service: Not on file Active member of club or organization: Not on file Attends meetings of clubs or organizations: Not on file Relationship status: Not on file Intimate partner violence: Fear of current or ex partner: Not on file Emotionally abused: Not on file Physically abused: Not on file Forced sexual activity: Not on file Other Topics Concerns: Not on file Social History Narrative Not on file I have reviewed the PMH, SH, FHX, ROS, MEDS, ALLERGIES and updated the computerized patient record appropriately. Physical Exam + or - There were no vitals taken for this visit. General Appearance: Alert, cooperative, no distress, appears stated age Head: Normocephalic, without obvious abnormality, atraumatic Eyes: PERRL, conjunctiva/corneas clear, EOM's intact, fundi Oral: Lips, mucosa, and tongue normal; teeth and gums normal Neck: Supple, symmetrical, trachea midline, no adenopathy; thyroid: No enlargement/tenderness/nodules; carotid Bruit absent JVD: Appears normal Back: Symmetric, no curvature Lungs: Clear to auscultation bilaterally, respirations unlabored Chest wall: No tenderness or deformity Heart: Regular rate and rhythm, S1S2 present or without murmur or extra heart sounds Abdomen: Soft, non-tender, bowel sounds active all four quadrants, no masses, no organomegaly Extremities: Extremities normal, atraumatic, no cyanosis or edema Peripheral Artery: Carotid, radial, femoral, popliteal, pedal. Normal Skin: Skin color, texture, turgor normal, no rashes or lesions Neurologic: CNII-XII intact. Normal strength, motor exam grossly intact; normal gait Other test results reviewed: ECG: normal EKG, normal sinus rhythm, unchanged from previous tracings Laboratory: Assessment and Plan: + or - @ENCDXORDS@ Doing well. Recovering from CVA. Continue routine Linq interrogation. Follow up in 6 months. Meng Antonio documented in this encounter Plan of Treatment Health Maintenance Due Date Last Done Comments COLON CANCER SCREENING: COLONOSCOPY 1945 MAMMOGRAM ANNUAL 1945 TETANUS SHOT (ADULT) 1961 BMI FOLLOW UP PLAN 1964 HEPATITIS C SCREENING 1964 FALL SCREEN 10/21/2011 OSTEOPOROSIS SCREENING 10/21/2011 PNEUMOVAX >=65 (PPSV23) 10/21/2011 PREVNAR >=65 (PCV13) 10/21/2011 FLU VACCINE > 6 MONTHS 11/30/2018 documented as of this encounter Results Not on filedocumented in this encounter Visit Diagnoses Diagnosis Cerebrovascular accident (CVA) due to thrombosis of posterior cerebral artery, unspecified blood vessel laterality - Primary documented in this encounter Insurance Payer Benefit Plan / Subscriber ID Effective Dates Phone Address Type Group [facility] OUT OF STATE xxxxxxxxxxxxxxx 2016-Present [address] [facility] [id number] documented as of this encounter
--- OUTSIDE RECORDS SUMMARY | 2019-04-16 06:59 | XMS REPORT ---
:1945 [facility] Address [address] [place] [address] Dr. Baltazar [address] [place] [id number] Care Team Providers Name Role Phone NIMO BENTON Unavailable Unavailable Problems This patient has no known problems. Allergies, Adverse Reactions, Alerts This patient has no known allergies or adverse reactions. Medications This patient has no known medications. Results Test Description Test Time Test Comments Text Results Atomic Results Result Comments HEMOGLOBIN A1C 2018-10-26 14:18:00 Test Item Value Reference Range Comments HEMOGLOBIN A1C (BEAKER) (test tjrn=141) 5.7 % 4.3-6.1 [id number] 13:16:00 Test Item Value Reference Range Comments RPR SCREEN (BEAKER) (test reia=730) Nonreactive Nonreactive VITAMIN [id number] 05:17:00 Test Item Value Reference Range Comments VITAMIN B12 (BEAKER) (test trvk=467) 319 pg/mL 213-816 FOLATE, [id number] 05:17:00 Test Item Value Reference Range Comments FOLATE (BEAKER) (test mrzj=676) 17.0 ng/mL >=7.0 TROPONIN [id number] 03:27:00 Test Item Value Reference Range Comments TROPONIN I (BEAKER) (test spyw=412) < ng/mL 0.00-0.03 Troponin I (TnI) levels must be interpreted in the context of the presenting symptoms and the clinical findings. Elevated TnI levels indicate myocardial damage, but are not specific for ischemic heart disease. Elevated TnI levels are seen in patients with other cardiac conditions (including myocarditis and congestive heart failure), and slight TnI elevations occur in patients with other conditions, including sepsis, renal failure, acidosis, acute neurological disease, and persistent tachyarrhythmia.[id number] 03:21:00 Test Item Value Reference Range Comments MAGNESIUM (BEAKER) (test kkmr=162) 2.1 mg/dL 1.6-2.6 BASIC METABOLIC [id number] 03:21:00 Test Item Value Reference Range Comments SODIUM (BEAKER) (test 138 meq/L 136-145 yvfn=062) POTASSIUM (BEAKER) (test 3.7 meq/L 3.5-5.1 bsky=924) CHLORIDE (BEAKER) (test 106 meq/L 98-107 eosx=407) CO2 (BEAKER) (test 23 meq/L 22-29 iunm=234) BLOOD UREA NITROGEN 11 mg/dL 7-21 (BEAKER) (test bcld=968) CREATININE (BEAKER) (test 0.68 mg/dL 0.57-1.25 imou=370) GLUCOSE RANDOM (BEAKER) 122 mg/dL 70-105 (test lvwq=457) CALCIUM (BEAKER) (test 9.0 mg/dL 8.4-10.2 anwo=425) EGFR (BEAKER) (test 85 mL/min/1.73 sq m ESTIMATED GFR IS NOT nxod=2671) ACCURATE CREATININE CLEARANCE IN PREDICTING GLOMERULAR FILTRATION RATE. ESTIMATED GFR IS NOT APPLICABLE FOR DIALYSIS PATIENTS. LIPID [id number] 03:21:00 Test Item Value Reference Range Comments TRIGLYCERIDES (BEAKER) (test nqlm=454) 133 mg/dL CHOLESTEROL (BEAKER) (test mgnz=085) 217 mg/dL HDL CHOLESTEROL (BEAKER) (test noiv=716) 52 mg/dL LDL CHOLESTEROL CALCULATED (BEAKER) (test 138 mg/dL ilam=116) Triglyceride Reference Range: Low Risk <150 Borderline 150- 199 High Risk 200-499 Very High Risk >=500Cholesterol Reference Range: Low Risk <200 Borderline 200-239 High Risk > 240HDL Cholesterol Reference Range: Low Risk >=60 High Risk <40LDL Cholesterol Reference Range: Optimal <100 Near Optimal 100-129 Borderline 130-159 High 160-189 Very High >=190CREATINE KINASE (CK)2018-10-26 03:21:00 Test Item Value Reference Range Comments CREATINE KINASE TOTAL (BEAKER) (test cnmp=588) 120 U/L 29-200 TSH/FREE T4 IF [id number] 01:24:00 Test Item Value Reference Range Comments THYROID STIMULATING HORMONE (BEAKER) (test 0.75 uIU/mL 0.35-4.94 fymb=125)
--- OUTSIDE RECORDS SUMMARY | 2019-04-16 06:59 | XMS REPORT | Summary of Care ---
:1945 Author Organization [facility] Address [address] [id number] Care Team Providers Name Role Phone Kuashik Horner MD Primary Care Provider Reason for Referral (Routine) Status Reason Specialty Diagnoses / Referred By Referred To Procedures Contact Contact Pending Consult, Physical Therapy Diagnoses Cryptogenic stroke Richard Berumen Test, and Treat [address] [address] Reason for Visit Reason Comments Extremity Weakness Consult, Test & Treat (Routine) Status Reason Specialty Diagnoses / Referred By Referred To Procedures Contact Contact Authorization Not Neurology Diagnoses Rescheduling,says appt was cancelled/STROKE [facility] Richard Berumen Needed Procedures [facility]IS[facility] [address] [facility] [address] [place] [address] Encounter Details Date Type Department Care Team Description 12/14/[address] [facility] Richard Merritt MD Extremity Weakness Medicine Neurology [address] [facility] [address] [facility] [address] 9th Floor, [address] [place] [address] [place] [address] Allergies Active Allergy Reactions Severity Noted Date Comments Adhesive 05/19/2017 Flu Virus Vaccine 05/25/2017 Latex Itching 05/25/2017 Povidone-Iodine Itching 05/25/2017 documented as of this encounter (statuses as of 12/14/2018) Medications Medication Sig Dispensed Refills Start Date End Date Status levothyroxine Take 1 Tab by 40 Tab 0 03/09/2018 Active (SYNTHROID) 112 MCG mouth daily. tablet levothyroxine TAKE 1 TABLET 1 12/11/2018 Active (SYNTHROID) 100 MCG BY MOUTH ONCE tablet DAILY IN THE MORNING ON AN EMPTY STOMACH atorvastatin Take 1 Tab by 90 Tab 3 12/14/2018 12/14/2019 Active (LIPITOR) 80 MG mouth daily. tablet EQ ASPIRIN LOW DOSE Take 1 Tab by 90 Tab 3 12/14/2018 Active 81 MG tablet mouth daily. atorvastatin Take 80 mg by 0 10/28/2018 12/14/2018 Discontinued (LIPITOR) 80 MG mouth. tablet EQ ASPIRIN LOW DOSE CHEW AND 0 11/06/2018 12/14/2018 Discontinued 81 MG tablet SWALLOW 1 TABLET BY MOUTH ONCE DAILY documented as of this encounter (statuses as of 12/14/2018) Active Problems Problem Noted Date Multinodular goiter 08/23/2017 Multiple thyroid nodules 03/29/2017 Hypothyroidism 03/29/2017 documented as of this encounter (statuses as of 12/14/2018) Social History Tobacco Use Types Packs/Day Years Used Date Never Smoker Smokeless Tobacco: Never Used Alcohol Use Drinks/Week oz/Week Comments Yes Sex Assigned at Date Recorded Not on file Job Start Date Occupation Industry Not on file Not on file Not on file Travel History Travel Start Travel End No recent travel history available. documented as of this encounter Last Filed Vital Signs Vital Sign Reading Time Taken Comments Blood Pressure 141/85 12/14/2018 1:24 PM CDT Pulse 91 12/14/2018 1:24 PM CDT Temperature - - Respiratory Rate - - Oxygen Saturation - - Inhaled Oxygen Concentration - - Weight 82.3 kg (181 lb 6.4 oz) 12/14/2018 1:24 PM CDT Height 162.6 cm (5' 4") 12/14/2018 1:24 PM CDT Body Mass Index 31.14 12/14/2018 1:24 PM CDT documented in this encounter Patient Instructions Patient InstructionsRichard Berumen MD - 12/14/2018 2:00 PM CDT - Keep yourself well hydated. - check your blood pressures few times a week - continue taking the Coenzyme Q 10 along with lipitor. - weight loss, exercise and [facility] Learning About an Ischemic Stroke What is an ischemic stroke? An ischemic (say "azm-WOX-spyt") stroke occurs when a blood clot blocks a blood vessel in the brain.This means that blood cannot flow to some part of the brain. Without blood and the oxygen it carries, this part of the brain starts to . The part of the body controlled by the damaged area of the brain cannot work properly. This is different from a hemorrhagic (say "jah-nrk-EB-jick") stroke, which happens when a blood vessel in the brain has burst open or has started to leak. The brain damage from a stroke starts within minutes. Quick treatment can help limit damage to the brain and make recovery more likely. People who have had a stroke may have a hard time talking, understanding things , and making decisions. They may have to relearn daily activities, such as how to eat, bathe, and dress. How well someone recovers from a stroke depends on how quickly the person gets to the hospital, where in the brain thestroke happened, and how severe it was. Training and therapy also make a difference in how well people recover. What are the symptoms? If you have any of these symptoms, call 911 or other emergency services right away: You have symptoms of a stroke. These may include: ? Sudden numbness, tingling, weakness, or loss of movement in your face, arm, or leg, especially on only one side of your body. ? Sudden vision changes. ? Sudden trouble speaking. ? Sudden confusion or trouble understanding simple statements. ? Sudden problems with walking or balance. ? A sudden, severe headache that is different from past headaches. See your doctor if you have symptoms that seem like a stroke, even if they go away quickly. You may have had a transient ischemic attack (TIA), sometimes called a mini-stroke. A TIA is a warning that astroke may happen soon. Getting early treatment for a TIA can help prevent a stroke. What causes an ischemic stroke? An ischemic stroke is caused by a blood clot that blocks blood flow in the brain. The most common causes of blood clots include: Hardening of the arteries (atherosclerosis). This is caused by high blood pressure, diabetes, high cholesterol, or smoking. Atrial fibrillation. How is ischemic stroke treated? You may have to take several medicines, depending on what caused your stroke. Ask your doctor if a stroke rehab program is right for you. Rehab increases your chances of getting back some of the abilities you lost. How can you prevent another stroke? Work with your doctor to treat any health problems you have. High blood pressure, high cholesterol, atrial fibrillation, and diabetes all raise your chances of having a stroke. Be safe with medicines. Take your medicine exactly as prescribed. Call your doctor if you think you are having a problem with your medicine. Have a healthy lifestyle. ? Do not smoke or allow others to smoke around you. If you need help quitting, talk to your doctor about stop-smoking programs and medicines. These can increase your chances of quitting for good. Smoking makes a stroke more likely. ? Limit alcohol to 2 drinks a day for men and 1 drink a day for women. ? Lose weight if you need to. A healthy weight will help you keep your heart and body healthy. ? Be active. Ask your doctor what type and level of activity is safe for you. ? Eat heart-healthy foods, like fruits, vegetables, and high-fiber foods. Follow-up care is a sagastume part of your treatment and safety. Be sure to make and go to all appointments, and call your doctor if you are having problems. It's also a good idea to know your test results and keep a list of the medicines you take. Where can you learn more? Go to [email or web address]/ Click on the magnifying glass tab, and enter D161 in the search box to learn more about "Learning About an Ischemic Stroke." Current as of: March 22, 2017 Content Version: 03.08-2018 [employer]. Care instructions adapted under license by [facility]. If you have questions about a medical condition or this instruction, always ask your healthcare professional. [employer] disclaims any warranty or liability for your use of this information. Patient Education [facility] Statins: Care Instructions Your Care Instructions Statins are medicines that lower your cholesterol and your risk for a heart attack and stroke. Cholesterol is a type of fat in your blood. If you have too much cholesterol, it can build up in blood vessels. This raises your risk of heart disease, heart attack, and stroke. Statins lower cholesterol by blocking how much your body makes. This prevents cholesterol from building up in your blood vessels. This is called hardening of the arteries. It is the starting point for some heart and blood flow problems, such as heart disease. Statins may also reduce inflammation around the buildup ( called plaque). This can lower the risk that the plaque will break apart and lead to aheart attack or stroke. A heart-healthy lifestyle is important for lowering your risk whether you take statins or not. This includes eating healthy foods, being active, staying at a healthy weight, and not smoking. You must take statins regularly for them to work well. If you stop, your cholesterol and your risk will go back up. Examples of statins include: Atorvastatin (Lipitor). Lovastatin (Mevacor). Pravastatin (Pravachol). Simvastatin (Zocor). Statins interact with many medicines. So tell your doctor all of the other medicines that you take. These include prescription medicines, tmub-kef-ykgylnu medicines, dietary supplements, and herbal products. Follow-up care is a sagastume part of your treatment and safety. Be sure to make and go to all appointments, and call your doctor if you are having problems. It's also a good idea to know your test results and keep a list of the medicines you take. How can you care for yourself at home? Take statins exactly as your doctor tells you. High cholesterol has no symptoms. So it is easy toforget to take the pills. Try to make a system that reminds you to take them. Do not take two or more medicines at the same time unless the doctor told you to. Statins can interact with other medicines. Always tell your doctor if you think you are having a side effect. If side effects are a problem with one medicine, a different one may be used. Keep making the lifestyle changes your doctor suggests. Eat heart-healthy foods, be active, don'tsmoke, and stay at a healthy weight. Talk to your doctor about avoiding grapefruit juice if you take statins. Grapefruit juice can raise the level of this medicine in your blood. This could increase side effects. When should you call for help? Watch closely for changes in your health, and be sure to contact your doctor if: You think you are having problems with your medicine. You have aches or muscle pain. Where can you learn more? Go to [email or web address] Click on the magnifying glass tab, and enter R358 in the search box to learn more about "Statins: Care Instructions." Current as of: September 08, 2016 Content Version: 03.08-2018 [employer]. Care instructions adapted under license by [facility]. If you have questions about a medical condition or this instruction, always ask your healthcare professional. [employer] disclaims any warranty or liability for your use of this information. Patient Education [facility] Learning About TPA Treatment for Stroke What is TPA? Tissue plasminogen activator, or TPA, is a medicine that dissolves blood clots fast. Most strokes are caused by a blood clot. This kind of stroke is called an ischemic (say "qjc-FVM-ghtp") stroke. For an ischemic stroke, TPA can dissolve the clot quickly and help blood to flow normally again. This canhelp limit damage to the brain. TPA is given through a vein in your hand or arm. It travels through the bloodstream to the clot. This treatment is most often done in the hospital. Doctors try to give TPA within 3 hours after stroke symptoms start. Some people may be helped if they are able to get this medicine within 4 hours of their first symptoms. How does TPA help during a stroke? When a blood clot moves to a blood vessel in the brain, it blocks blood flow to that area and causesa stroke. Without blood and the oxygen it carries, that part of the brain starts to . If blood supply isn't restored, permanent damage usually occurs. The body parts controlled by those damaged cells can't work, or function, as they should. This loss of function may be mild or severe. It may be short-term or lifelong. Treatment with TPA can improve recovery from a stroke, especially if it's given as soon as possible after the stroke happens. It can limit brain damage from a stroke by dissolving the blood clot. Without TPA to dissolve it, a blood clot in your brain is more likely to cause serious brain damage. In general, the less damage there is to the brain tissue, the less disability a stroke causes. And with less damage to brain tissue, you are more likely to recover from the stroke. No treatment can guarantee a full recovery from a stroke. But TPA does improve your chances of having less or no disability after a stroke. What are the risks of TPA? The main risk of TPA is that it can cause serious bleeding in the body. If bleeding happens in the brain, it can cause worse stroke symptoms or even . Doctors are very careful about using TPA. For example, a brain scan is done before TPA treatment to make sure you have no signs of bleeding. (Treatment with TPA would make any bleeding worse.) And after treatment, you are closely watched for some time to make sure you have no internal bleeding. Is there another treatment choice? When your doctor tells you that TPA treatment is a choice for you, it's because he or she believes that TPA offers you the best chance of recovery from stroke. But because TPA also has risks, it is up to you to choose it or not. Based on your condition, your doctor will explain what other choices you have for treatment. They may include other medicines that stop the clot from getting bigger. With or without TPA treatment, you will have care to help you get better. And you'll have medicine to prevent blood clots and control symptoms. Having a stroke can make it hard to make quick and complex decisions. Feeling afraid or anxious can make it even harder to think clearly. Your hospital staff understands this. They will explain your choices, answer your questions, and help you decide about your treatment. Follow-up care is a sagastume part of your treatment and safety. Be sure to make and go to all appointments, and call your doctor if you are having problems. It's also a good idea to know your test results and keep a list of the medicines you take. Where can you learn more? Go to [email or web address]/ Click on the magnifying glass tab, and enter E530 in the search box to learn more about "Learning About TPA Treatment for Stroke." Current as of: September 08, 2016 Content Version: 11.20051201-4151 [employer]. Care instructions adapted under license by [facility]. If you have questions about a medical condition or this instruction, always ask your healthcare professional. [employer] disclaims any warranty or liability for your use of this information. Patient Education [facility] Learning About FAST: Stroke Warning Signs What is FAST? FAST is a simple way to remember the main symptoms of stroke. Recognizing these symptoms helps you know when to call for medical help. FAST stands for: Face drooping. Arm weakness. Speech difficulty. Time to call 911. What happens when you have a stroke? A stroke occurs when a blood vessel to the brain bursts or is blocked by a blood clot. Within minutes, the nerve cells in that part of the brain . As a result, the part of the body controlled by those cells cannot work properly. The effects of a stroke may range from mild to severe. They may get better, or they may last the rest of your life. A stroke can affect vision, speech, behavior, thought processes, and your ability to move. It can cause symptoms that may include: Sudden numbness, tingling, weakness, or loss of movement in your face, arm, or leg, especially ononly one side of your body. Sudden vision changes. Sudden trouble speaking. Sudden confusion or trouble understanding simple statements. Sudden problems with walking or balance. A sudden, severe headache that is different from past headaches. Why is it important to get help FAST? Quick treatment may save your life. And it may reduce the damage in your brain so that you have fewer problems after the stroke. When you know the FAST symptoms, you will know when it's important to call for medical help. Where can you learn more? Go to [email or web address]/ Click on the magnifying glass tab, and enter E640 in the search box to learn more about "Learning About FAST: Stroke Warning Signs." Current as of: March 22, 2017 Content Version: 03.08-2018 [employer]. Care instructions adapted under license by [facility]. If you have questions about a medical condition or this instruction, always ask your healthcare professional. [employer] disclaims any warranty or liability for your use of this information. Patient Education [facility] Learning About How to Prevent Another Stroke What can you do to prevent another stroke? After a stroke, people feel lots of different emotions. Some people are worried that they could haveanother stroke. Or they may feel overwhelmed by how much there is to learn and do. Some people feel sad or depressed. No matter what emotions you are feeling, you can give yourself some control and peace of mind by making a plan to lower your risk of having another stroke. Take your medicines You'll need to take medicines to help prevent another stroke. Be sure to take your medicines exactlyas prescribed. And don't stop taking them unless your doctor tells you to. If you stop taking your medicines, you can increase your risk of having another stroke. Some of the medicines your doctor may prescribe include: Aspirin or some other blood thinner to prevent blood clots. Statins to lower cholesterol. Blood pressure medicines to lower blood pressure. Manage other health problems You can help lower your chance of having another stroke by managing certain other health problems. Problems that increase your risk of having another stroke include: High blood pressure. High cholesterol. Atrial fibrillation. Diabetes. If you have any of these health problems, you can manage them with healthy lifestyle changes along with medicine. Adopt a healthy lifestyle Do not smoke or allow others to smoke around you. If you need help quitting, talk to your doctor about stop-smoking programs and medicines. These can increase your chances of quitting for good. Smoking makes a stroke more likely. Limit alcohol to 2 drinks a day for men and 1 drink a day for women. Lose weight if you need to. Controlling your weight will help you keep your heart and body healthy. Be active. Ask your doctor what type and level of activity is safe for you. Eat heart-healthy foods, like fruits, vegetables, and high-fiber foods. It's also important to: Get a flu shot every year. Ask for help if you think you are depressed. Do stroke rehab Taking part in a stroke rehabilitation (rehab) program will help you to regain skills you lost or make the most of your abilities after a stroke. It also helps you take steps to prevent another stroke. Your rehab team will give you education and support to help you build new, healthy habits.You'll learn how to manage any other health problems that you might have. You'll also learn how to exercise safely, eat a healthy diet, and quit smoking if you smoke. You'll work with your team to decide what lifestyle choices are best for you. If your doctor hasn't already suggested it, ask him or her if stroke rehab is right for you. Know stroke symptoms Make sure you know the symptoms of stroke. FAST is a simple way to remember. Recognizing these symptoms helps you know when to call for medicalhelp.FAST stands for: Face drooping. Arm weakness. Speech difficulty. Time to call 911. Follow-up care is a sagastume part of your treatment and safety. Be sure to make and go to all appointments, and call your doctor if you are having problems. It's also a good idea to know your test results and keep a list of the medicines you take. Where can you learn more? Go to [email or web address]/ Click on the magnifying glass tab, and enter I827 in the search box to learn more about "Learning About How to Prevent Another Stroke." Current as of: March 22, 2017 Content Version: 03.08-2018 [employer]. Care instructions adapted under license by [facility]. If you have questions about a medical condition or this instruction, always ask your healthcare professional. [employer] disclaims any warranty or liability for your use of this information. Patient Education [facility] Learning About Long-Term Care for Stroke What is long-term care for stroke? Long-term care for stroke is care for people who are leaving the hospital after a stroke but who still need some medical care or other help while they work on getting better. Choosing the right type of long-term care is a very personal decision. It's important to look carefully at your options. You want to be sure that the level of care is right and that you will feel comfortable. Your doctor or other members of your medical team can help you find which type of long-term care would be best for you. What are the types of long-term care for stroke patients? Each type of care center offers a different level of care. These centers may have shared or private rooms. An assisted living center or residential care center: Has a range of services. These may include meals, cleaning, and laundry. And they may offer help with personal needs like bathing, grooming, and dressing. Often includes oversight by a nurse. You may be able to get help with basic care, such as gettingmedicines. A assisted center: Offers nursing care up to 24 hours a day. Provides meals and laundry. Provides help with dressing, bathing, using the toilet, and other daily tasks. Offers rehab therapy. A long-term acute care hospital: Is for stroke patients who have special medical problems. This may include things like chronic pain or not being able to breathe on your own. Follow-up care is a sagastume part of your treatment and safety. Be sure to make and go to all appointments, and call your doctor if you are having problems. It's also a good idea to know your test results and keep a list of the medicines you take. Where can you learn more? Go to [email or web address]/ Click on the magnifying glass tab, and enter G764 in the search box to learn more about "Learning About Long-Term Care for Stroke." Current as of: March 22, 2017 Content Version: 11.7 [id number] [employer]. Care instructions adapted under license by [facility]. If you have questions about a medical condition or this instruction, always ask your healthcare professional. [employer] disclaims any warranty or liability for your use of this information. Patient Education [facility] DASH Diet: Care Instructions Your Care Instructions The DASH diet is an eating plan that can help lower your blood pressure. DASH stands for Dietary Approaches to Stop Hypertension. Hypertension is high blood pressure. The DASH diet focuses on eating foods that are high in calcium, potassium, and magnesium. These nutrients can lower blood pressure. The foods that are highest in these nutrients are fruits, vegetables,low-fat dairy products, nuts, seeds, and legumes. But taking calcium, potassium, and magnesium supplements instead of eating foods that are high in those nutrients does not have the same effect. The DASH diet also includes whole grains, fish, and poultry. The DASH diet is one of several lifestyle changes your doctor may recommend to lower your high bloodpressure. Your doctor may also want you to decrease the amount of sodium in your diet. Lowering sodium while following the DASH diet can lower blood pressure even further than just the DASH diet alone. Follow-up care is a sagastume part of your treatment and safety. Be sure to make and go to all appointments, and call your doctor if you are having problems. It's also a good idea to know your test results and keep a list of the medicines you take. How can you care for yourself at home? Following the DASH diet Eat 4 to 5 servings of fruit each day. A serving is 1 medium-sized piece of fruit, cup choppedor canned fruit, 1/4 cup dried fruit, or 4 ounces ( cup) of fruit juice. Choose fruit more often than fruit juice. Eat 4 to 5 servings of vegetables each day. A serving is 1 cup of lettuce or raw leafy vegetables, cup of chopped or cooked vegetables, or 4 ounces ( cup) of vegetable juice. Choose vegetables more often than vegetable juice. Get 2 to 3 servings of low-fat and fat-free dairy each day. A serving is 8 ounces of milk, 1 cup of yogurt, or 1 ounces of cheese. Eat 6 to 8 servings of grains each day. A serving is 1 slice of bread, 1 ounce of dry cereal, or cup of cooked rice, pasta, or cooked cereal. Try to choose whole-grain products as much as possible. Limit lean meat, poultry, and fish to 2 servings each day. A serving is 3 ounces, about the size of a deck of cards. Eat 4 to 5 servings of nuts, seeds, and legumes (cooked dried beans, lentils , and split peas) each week. A serving is 1/3 cup of nuts, 2 tablespoons of seeds, or cup of cooked beans or peas. Limit fats and oils to 2 to 3 servings each day. A serving is 1 teaspoon of vegetable oil or 2 tablespoons of salad dressing. Limit sweets and added sugars to 5 servings or less a week. A serving is 1 tablespoon jelly or jam, cup sorbet, or 1 cup of lemonade. Eat less than 2,300 milligrams (mg) of sodium a day. If you limit your sodium to 1,500 mg a day, you can lower your blood pressure even more. Tips for success Start small. Do not try to make dramatic changes to your diet all at once. You might feel that you are missing out on your favorite foods and then be more likely to not follow the plan. Make small changes, and stick with them. Once those changes become habit, add a few more changes. Try some of the following: ? Make it a goal to eat a fruit or vegetable at every meal and at snacks. This will make it easy to get the recommended amount of fruits and vegetables each day. ? Try yogurt topped with fruit and nuts for a snack or healthy dessert. ? Add lettuce, tomato, cucumber, and onion to sandwiches. ? Combine a ready-made pizza crust with low-fat mozzarella cheese and lots of vegetable toppings. Try using tomatoes, squash, spinach, broccoli, carrots, cauliflower, and onions. ? Have a variety of cut-up vegetables with a low-fat dip as an appetizer instead of chips and dip. ? Sprinkle sunflower seeds or chopped almonds over salads. Or try adding chopped walnuts or almonds to cooked vegetables. ? Try some vegetarian meals using beans and peas. Add garbanzo or kidney beans to salads. Make burritos and tacos with mashed gutierrez beans or black beans. Where can you learn more? Go to [email or web address]/ Click on the magnifying glass tab, and enter H967 in the search box to learn more about "DASH Diet: Care Instructions." Current as of: April 06, 2017 Content Version: 11.7 1066-5523 [employer]. Care instructions adapted under license by [facility]. If you have questions about a medical condition or this instruction, always ask your healthcare professional. [employer] disclaims any warranty or liability for your use of this information. documented in this encounter Progress Notes Richard Berumen MD - 12/14/2018 2:00 PM CDT CHIEF COMPLAINT Post Hospital Discharge Follow up HISTORY OF PRESENT ILLNESS Ryann Barajas is a 73 y.o. w/ PMH of hypothyroidism s/p thyroidectomy for nodules who presentedon 10/25/18 with sudden onset vertigo, dizziness, and L numbness w/ OSH CTH showing a small cerebellar vermis hypodensity. Pt states that at around 8:30AM today she was standing up when she noticed sudden light headedness sensation. She denies feeling of vertigo but more like lightheadedness. Further, during this period oftime, she also felt LUE & LLE numbness without weakness that resolved within an hour. She continued to have difficulty ambulating as she felt very due to the fact that she felt very unsteady on herfeet. She then decided to go to the hospital because of her persistent sensation of lightheadedness and dizziness. She was also concerned as her mother of a ruptured aneurysm and had presented with similar symptoms. At OSH, MRI brain revealed an acute L cerebellar vermis infarct w/ old FLAIR changes in the R cerebellum. CTA was unremarkable. She was admitted to [facility]. TTE was unremarkable. No afib on Telemetry. Cardiology were consulted and loop recorder was placed. FH: brain aneurysm SH: denies smoking, EtOH, recreational drugs Interval History: No new recurrent events. Continues PAST MEDICAL HISTORY Past Medical History: Diagnosis Date Anxiety Arthritis Cataract Jeramy's thyroiditis Hypothyroidism Multiple thyroid nodules Seasonal allergic rhinitis PAST SURGICAL HISTORY Past Surgical History: Procedure Laterality Date HX COLONOSCOPY HX HYSTERECTOMY HX SALIVARY GLAND SURGERY 1970 HX THYROIDECTOMY HX TONSILLECTOMY CURRENT MEDICATIONS levothyroxine (SYNTHROID) 112 MCG tablet Take 1 Tab by mouth daily. ALLERGIES No Known Allergies SOCIAL HISTORY Social History Tobacco Use Smoking status: Never Smoker Smokeless tobacco: Never Used Substance Use Topics Alcohol use: Yes Drug use: No FAMILY HISTORY Family History Problem Relation Name Age of Onset Thyroid Disease Mother Stroke Mother Cancer Father Hearing Loss Father Thyroid Disease Paternal Grandmother Colon Cancer Other Grandfather REVIEW OF SYSTEMS GEN/SKIN: no weight loss, fevers, night sweats, rash HEENT: no sore throat, visual changes, hearing loss, tinnitus CARDIOVASCULAR:no chest pain, palpitations, edema RESPIRATORY: no cough, wheezing, SOB GI: +N/+V/ -D : no dysuria, frequency, hematuria MUSCULOSKELETAL: no joint or muscle pains or swelling PSYCH: no anxiety, depression, stress HEME: no easy bruisability, bleeding ALLERGY: no seasonal allergies ENDOCRINE: no DM, +thyroid problems NEURO: as above in HPI GENERAL PHYSICAL EXAMINATION The patient appears to be of stated age, moderately built and nourished, in no distress. CARDIOVASCULAR S1 S2 heard, no carotid bruit. RESPIRATORY Bilateral vesicular sounds heard, no crackles or crepitations. NEUROLOGICAL EXAMINATION Higher Mental Function: The patient is alert, oriented to time, place and person. The language is fluent without any signs of aphasia or dysarthria. Cranial Nerves Neurological: Mental Status: Awake, alert and oriented x 3; Speech: Fluent Cranial Nerves: I. Not tested. II. PERRLA. VFF III., IV., . EOMI w/ b/l horizontal nystagmus. V. Normal sensation in V1-3 distributions. VII. face symmetric VIII. Gross hearing intact. IX., X. normal palate elvation, no uvula deviation. XI. Normal strength of SCM and trap muscles bilaterally. XII. Tongue midline Motor: normal tone and bulk throughout UE Power Deltoids Biceps Triceps Wrist Ext Wrist Fl Finger Ext Finger Fl Right 5 5 5 5 5 5 5 Left 5 5 5 5 5 5 5 LE Power Hip flex Quads Hams Dorsiflex Plantarflex Right 5 5 5 5 5 Left 5 5 5 5 5 Sensation: normal throughout to pinprick, vibration and proprioception Reflexes Biceps Triceps B'radialis Knee Ankle Toes Right 2+ 2+ 2+ 2+ 2+ flexor Left 2+ 2+ 2+ 2+ 2+ flexor Coordination system: Normal Gait: Normal NIHSS: 0 1a - LOC 0-alert 1b - LOC Questions 0-both 1c- LOC Commands 0-both 2 - Best Gaze 0-normal 3 - Visual Barrow 0-normal 4 - Facial Paresis 0-normal 5 - Right Arm 0-no drift 6 - Left Arm 0-no drift 7 - Right Leg 0-no drift 8 - Left Leg 0-no drift 9 - Limb Ataxia 1 10 - Sensory 0-normal 11 - Best Language/Aphasia 0-normal 12 - Dysarthria 0-normal 13 - Extinction/Inattention 0-none Diagnostic Testing: Not available in chart. TTE: Global LV systolic function normal . No evidence of LV hypertrophy. Grade 1 diastolic dysfunction (impaired relaxation and low-normal LA pressure). LA size is normal (16-34 ml/m2) . IV saline contrast injection was negative for a PFO (patent foramen ovale) at rest and post Valsalva . Estimated peak systolic PA pressure is 25-30 mmHg . The estimated RA pressure by IVC dynamics 0-5 mmHg . Laboratory Testing: Stroke Labs: LDL: 138 mg/dl Hemoglobin A1c: 5.7% TSH: 0.75 STROKE RISK FACTORS Include hyperlipidemia, age. RISK FACTOR REDUCTION PLAN Lipid range - LDL < 100 and checked every 6 months, fasting Diabetes - HgB A1C <7 BP < 140/90. Medication Compliance. OVERALL PLAN AND RECOMMENDATIONS Ms Barajas is doing fine and recovered well from her stroke in September 2018. Etiology of her stroke is unknown. Loop recorder in place. - Continue Aspirin 81 mg and Lipitor 80 mg daily. Take Co-Q10 for muscle aches. - had her fill the release of medical information to obtain the images of her MRI brain and CTA head/Neck. RTC in 6 months Richard Ata MD Vascular Neurology [facility] documented in this encounter Plan of Treatment Date Type Specialty Care Team Description 12/22/2018 Procedure Visit-Tech Cardiology Performed 12/22/2018 Office Visit Cardiology Meng Antonio MD [address] [place] [address] Name Type Priority Associated Diagnoses Order Schedule AMB REF TO PT Outpatient Referral Routine Cryptogenic stroke Ordered: EXTERNAL 12/14/2018 Health Maintenance Due Date Last Done Comments COLON CANCER SCREENING: COLONOSCOPY 1945 MAMMOGRAM ANNUAL 1946 TETANUS SHOT (ADULT) 1961 BMI FOLLOW UP PLAN 1964 HEPATITIS C SCREENING 1964 FALL SCREEN 10/21/2011 OSTEOPOROSIS SCREENING 10/21/2011 PNEUMOVAX >=65 (PPSV23) 10/21/2011 PREVNAR >=65 (PCV13) 10/21/2011 FLU VACCINE > 6 MONTHS 11/30/2018 documented as of this encounter Results Not on filedocumented in this encounter Visit Diagnoses Diagnosis Cryptogenic stroke - Primary Unspecified cerebral artery occlusion with cerebral infarction Hyperlipidemia, unspecified hyperlipidemia type documented in this encounter Insurance Payer Benefit Plan / Subscriber ID Effective Dates Phone Address Type Group [facility] xxxxxxxxxxxxxxx 2016-Present [address] EPO [facility] [employer] - EPO - [facility] [id number] documented as of this encounter
[2019-04-16] MEDS ORDERED: HEPA 1000U/500MLS 2,000 UNIT/1,000 ML BAG IV ONE (07:09)
[2019-04-16] MEDS ORDERED: HEPARIN 5000 UNIT/ML 1 ML VIAL ONE (07:09)
[2019-04-16] MEDS ORDERED: MIDAZOLAM HCL 2 MG/2 ML INJ ONE ×2 (07:09→08:07)
[2019-04-16] MEDS ORDERED: FENTANYL CITR 100 MCG/2 ML ONE (07:10)
[2019-04-16] MEDS ORDERED: NITROGLYCERIN 100 MCG/ML SYR (for cath lab use only) IV ONE (07:10)
[2019-04-16] MEDS ORDERED: LIDOCAINE 1% MPF 30 ML VIAL ONE (07:10)
[2019-04-16] MEDS ORDERED: NITROGLYCERIN/D5W 25 MG/250 ML BTL IV ONE (07:10)
[2019-04-16] MEDS ORDERED: NICARDIPINE HCL 25 MG/10 ML IV ONE (07:10)
[2019-04-16] MEDS ORDERED: ATROPINE SULF 1 MG/10 ML SYR IV ONE ×2 (07:11→08:20)
[2019-04-16] MEDS ORDERED: NA CHLORIDE 0.9% 0 ML ONE ×2 (07:12→08:20)
[2019-04-16] MEDS ORDERED: NA CHLORIDE 0.9% 500 ML ONE (07:12)
[2019-04-16 11:07] VITALS: BP 124/64; TEMP 97.7; O2SAT 98
--- NOTE | 2019-04-16 14:33 | OP ---
Surgeon: Malcolm Carvalho MD Procedures: Left heart catheterization with coronary and left ventricular angiography. Indication: Abnormal Cardiolite stress test, atypical chest pain. Procedure Findings: The patient has normal coronary arteries. Normal left ventricular ejection frac tion, normal segmental wall motion. Normal pressures. Procedure In Detail: The patient was brought to the cardiac laborer pipelines in a fasting state, sedated wit h Versed and fentanyl. Prepared and draped in the usual sterile fashion. Right radial approach was used. 2 cc of 1% lidocaine were used to anesthetize the tissues around the right radial artery. The artery was entered using a 21-gauge needle, cannulated with a 0.021 inch diameter guidewire. Crista dash Seldinger technique allowed us to place a 6-Green[place]ic Terumo radial sheath in place. The guidewire a nd introducer were removed and the sheath was flushed and a radial cocktail was given consisting of n icardipine, heparin, nitroglycerin. A TIG catheter was guided into the ascending aorta, aortic root using fluoroscopy and a short radius J-tip Glidewire. We angiogrammed the right coronary, left coron miguelito, left ventricle all with the same catheter. After pictures were taken, reviewed, decision about the further course of action was made. We removed the catheter over a guidewire to keep it straight. We removed the sheath and closed the arteriotomy using a TR band. There were no complications from the procedure. Estimated Blood Loss: Was 5 cc. Nursery Teacher: Danielle Flores. SALLY/OMAR Voice ID: [id number] Report ID: [id number]
== END 2019-04-16 10:55 | disposition home or self-care (01) ==
LOC: CCL 06:57
PROVIDERS: ATTEND Internal Medicine
DX: R94.39 Abnormal result of other cardiovascular function study (principal); R07.89 Other chest pain; I10 Essential (primary) hypertension; E78.2 Mixed hyperlipidemia; Z91.040 Latex allergy status; Z79.82 Long term (current) use of aspirin
CPT/HCPCS: 85025; 80048; 36415; 85610; 85730; 71046; 93458; C1893; J1644; J2250 ×2; J3010; J7040; J0583

== ENCOUNTER 2020-11-17 13:17 | Day surgery (SDC) | payer BC ==
--- NOTE | 2020-11-14 13:22 | RAD REPORT ---
EXAM DESCRIPTION: RAD - Chest Pa And Lat (2 Views) - 11/14/2020 1:17 pm CLINICAL HISTORY: loop recorder removal Chest pain. COMPARISON: Chest Pa And Lat (2 Views) dated 04/13/2019; Chest Single View dated 10/25/2018; CHEST SI NGLE VIEW dated 07/18/2012; CHEST SINGLE VIEW dated 04/15/2012 FINDINGS: The lungs are mildly emphysematous but clear. Loop recorder noted medial left chest. The h eart is upper limit of normal in size. No displaced fractures. IMPRESSION: Mild COPD.
[2020-11-14 13:49] LABS: Absolute Lymphocytes (CBC) 1.9 K/uL (0.7-4.9); Basophils % 1.1 % (0-1.3); Hematocrit 43.4 % (36.0-45.0); MPV 9.3 fL (7.6-11.3); RBC Red Blood Cell Count 4.79 M/uL (3.86-4.86)
[2020-11-14 13:52] LABS: Protime INR 0.91
[2020-11-14 13:59] LABS: Potassium 4.3 mmol/L (3.5-5.1)
[2020-11-17] MEDS ORDERED: NA CHLORIDE 0.9% 500 ML ONE (13:49)
[2020-11-17 14:07] VITALS: BP 146/42; TEMP 97.5; O2SAT 97
[2020-11-17] MEDS ORDERED: HEPA 1000U/500MLS 1,000 UNIT/500 ML BAG IV ONE (15:45)
[2020-11-17] MEDS ORDERED: LIDOCAINE 1% 20 ML MDV ONE (15:45)
[2020-11-17] MEDS ORDERED: ATROPINE SULF 1 MG/10 ML SYR IV ONE (15:46)
[2020-11-17] MEDS ORDERED: MIDAZOLAM HCL 2 MG/2 ML INJ ONE (15:46)
[2020-11-17] MEDS ORDERED: FENTANYL CITR 100 MCG/2 ML ONE (15:46)
--- NOTE | 2020-11-17 16:37 | OP ---
Date of Procedure: 11/17/2020 Surgeon: SHAKEEL GAONA Procedure Performed: Loop recorder removal. Indication: Loop recorder with battery of end life and causing pain. Description Of Procedure: After risks, benefits, and alternatives were explained, the patient agreed to proceed and signed informed consent. The patient was brought to the cardiac catheterization labo [facility], prepped and draped in usual sterile fashion and then using fluoroscopy, the exact location an d direction of the loop recorder was identified. Then, using 20 mL of local lidocaine 2% was used to anesthetize the skin and subcutaneous tissue around the loop recorder. Then, a surgical cut above t he loop recorder was made parallel to the loop recorder direction about 2 cm and then using the force ps, the loop recorder head was identified and then was pulled out of the body and intact in 1 piece. Subsequently, the wound was explored. There was no foreign body. Then, using a 2-0 suture placing 5 sutures to close the surgical wound with good hemostasis. The wound was dressed and the patient wa s sent to recovery in stable condition. Conclusion: Successful loop recorder removal. Plan: To remove sutures in 10 days in the office. /AMANDAL Voice ID: [id number] Report ID: [id number]
== END 2020-11-17 16:52 | disposition home or self-care (01) ==
LOC: CCL 13:17
PROVIDERS: ATTEND Internal Medicine
PROC: 0JPT02Z Removal of Monitoring Device from Trunk Subcutaneous Tissue and Fascia, Open Approach (ICD-10-PCS; principal; 2020-11-17)
DX: Z45.09 Encounter for adjustment and management of other cardiac device (principal); Z88.8 Allergy status to other drugs, medicaments and biological substances; Z91.041 Radiographic dye allergy status; Z91.040 Latex allergy status
CPT/HCPCS: 33286; 93005; 85025; 80048; 36415; 85610; 85730; 71046; 33284; J2250; J7040; J1644; J3010

== ENCOUNTER 2021-09-03 09:31 | Observation (INO) | payer BC ==
--- OUTSIDE RECORDS SUMMARY | 2021-09-03 12:34 | XMS REPORT | Continuity of Care Document ---
:1945 Author Organization [facility] t Address [address] [place] [address] Care Team Providers Name Role Phone Marisela FLANAGAN Attending Clinician Ata FLANAGAN Attending Clinician BRYON BENTON Attending Clinician Unavailable BRYON BENTON Admitting Clinician Unavailable Payers Payer Name Policy Type Policy Number Effective Date Expiration Date S ource Problems Condition Condition Condition Status Onset Resolution Last Treating Co mments Source Name Details Category Date Date Treatment Clinician Date Multinodul Multinodul Disease Active [facility] ar goiter ar goiter 24 Marissa ege 00:00: of 00 Medicin e Hypothyroi Hypothyroi Disease Active 2016-05 [facility] dism dism 05-29 College 00:00: of 00 Medicin e Multiple Multiple Disease Active 2016-05 [facility] [facility] thyroid thyroid 05-29 College nodules nodules 00:00: of 00 Medicin e Allergies, Adverse Reactions, Alerts Allergy Allergy Status Severity Reaction(s) Onset Inactive Treating Comm ents Source Name Type Date Date Clinician Flu Propensi Active [place] Virus ty to 05-25 College Vaccine adverse 00:00: of reaction 00 Medicin s to e drug Latex Propensi Active Itching Dave ty to 05-25 College adverse 00:00: of reaction 00 Medicin s to e substanc e Povidone Propensi Active Itching [place] -Iodine ty to 05-25 College adverse 00:00: of reaction 00 Medicin s to e drug Adhesive Propensi Active [place] ty to 18 College adverse 00:00: of reaction 00 Medicin s to e substanc e NO KNOWN Allergy Active [facility] Social History Social Habit Start Date Stop Date Quantity Comments Source Alcohol intake [place] [facility] Sex Assigned At [facility] Smoking Status Start Date Stop Date Source Never smoker [facility] o f Medicine Medications Ordered Filled Start Stop Current Ordering Indication Dosage Frequency Signature Comments Components Source Medication Medication Date Date Medication? Clinician (SIG) Name Name EQ ASPIRIN Yes 81mg Take 1 Tab [facility] LOW DOSE 81 8-15 by mouth Marissa ege MG tablet 00:00: daily. of 00 Medicin e EQ ASPIRIN Yes 81mg Take 1 Tab [facility] [place] LOW DOSE 81 8-15 by mouth Marissa ege MG tablet 00:00: daily. of Medicin e atorvastati 2020- No 80mg Take 1 Tab Dave n (LIPITOR) 8-15 08-15 by mouth Col [facility]ge 80 MG 00:00: 04:59 daily. of tablet 00 :00 Medicin e atorvastati 2019- No 80mg Take 1 Tab Dave n (LIPITOR) 8-15 08-15 by mouth Col lege 80 MG 00:00: 04:59 daily. of tablet 00 :00 Medicin e levothyroxi Yes TAKE 1 [facility] or ne 8-12 TABLET BY [place] (SYNTHROID) 00:00: MOUTH ONCE of 100 MCG 00 DAILY IN Medicin tablet THE e MORNING ON AN EMPTY STOMACH levothyroxi Yes TAKE 1 [facility] or ne 8-12 TABLET BY [place] (SYNTHROID) 00:00: MOUTH ONCE of 100 MCG 00 DAILY IN Medicin tablet THE e MORNING ON AN EMPTY STOMACH EQ ASPIRIN 2019- No CHEW AND Ba ylor LOW DOSE 81 7-08 08-15 SWALLOW 1 Co llege MG tablet 00:00: 00:00 TABLET BY of 00 :00 MOUTH ONCE Medicin DAILY e atorvastati 2019- No 80mg Take 80 mg Dave n (LIPITOR) 629 08-15 by mouth. Co llege 80 MG 00:00: 00:00 of tablet 00 :00 Medicin e levothyroxi 2017-05 Yes 112ug Take 1 Tab [place] ne 1-08 by mouth College (SYNTHROID) 00:00: daily. of 112 MCG 00 Medicin tablet e levothyroxi 2017-05 Yes 112ug Take 1 Tab [facility] 08 by [facility] [place]SY[place]ROID) 00:00: daily. of 112 MCG 00 Medicin tablet e Vital Signs Vital Name Observation Time Observation Value Comments Source Systolic blood 2018-12-14 18:24:00 141 mm[Hg] [facility] system [facility] Diastolic blood 2018-12-14 18:24:00 85 mm[Hg] [facility] Medicine Heart rate 2018-12-14 18:24:00 91 /min [facility] Body height 2018-12-14 18:24:00 162.6 cm [facility] Body weight 2018-12-14 18:24:00 82.283 kg [facility] BMI 2018-12-14 18:24:00 31.14 [facility] Systolic blood 2018-12-14 18:24:00 141 mm[Hg] [facility] Diastolic blood 2018-12-14 18:24:00 85 mm[Hg] [facility] Medicine Heart rate 2018-12-14 18:24:00 91 /min [facility] Body height 2018-12-14 18:24:00 162.6 [facility] Body weight 2018-12-14 18:24:00 82.283 [facility] BMI 2018-12-14 18:24:00 31.14 kg/m2 [facility] Procedures This patient has no known procedures. Plan of Care Planned Activity Planned Date Details Comments Source Future Scheduled Test COLON CANCER SCREENING: [facility] COLONOSCOPY [code = Medicine COLON CANCER SCREENING: COLONOSCOPY] Future Scheduled Test MAMMOGRAM ANNUAL [code [facility] = MAMMOGRAM ANNUAL] Medicine Future Scheduled Test TETANUS SHOT (ADULT) [facility] [code = TETANUS SHOT Medicin e (ADULT)] Future Scheduled Test BMI FOLLOW UP PLAN [facility] [code = BMI FOLLOW UP Medici ne PLAN] Future Scheduled Test HEPATITIS C SCREENING [facility] [code = HEPATITIS C Medicine SCREENING] Future Scheduled Test FALL SCREEN [code = [facility] FALL SCREEN] Medicine Future Scheduled Test OSTEOPOROSIS SCREENING [facility] [code = OSTEOPOROSIS Medicin e SCREENING] Future Scheduled Test PNEUMOVAX >=65 (PPSV23) [facility] [code = PNEUMOVAX >=65 Medic ine (PPSV23)] Future Scheduled Test PREVNAR >= 65 (PCV13) [facility] [code = PREVNAR >= 65 Medici ne (PCV13)] Future Scheduled Test FLU VACCINE > 6 MONTHS [facility] [code = FLU VACCINE > 6 Medi cine MONTHS] Future Scheduled Test COLON CANCER SCREENING: [facility] COLONOSCOPY [code = Medicine COLON CANCER SCREENING: COLONOSCOPY] Future Scheduled Test MAMMOGRAM ANNUAL [code [facility] = MAMMOGRAM ANNUAL] Medicine Future Scheduled Test TETANUS SHOT (ADULT) [facility] [code = TETANUS SHOT Medicin e (ADULT)] Future Scheduled Test BMI FOLLOW UP PLAN [facility] [code = BMI FOLLOW UP Medici ne PLAN] Future Scheduled Test HEPATITIS C SCREENING [facility] [code = HEPATITIS C Medicine SCREENING] Future Scheduled Test FALL SCREEN [code = [facility] FALL SCREEN] Medicine Future Scheduled Test OSTEOPOROSIS SCREENING [facility] [code = OSTEOPOROSIS Medicin e SCREENING] Future Scheduled Test PNEUMOVAX >=65 (PPSV23) [facility] [code = PNEUMOVAX >=65 Medic ine (PPSV23)] Future Scheduled Test PREVNAR >= 65 (PCV13) [facility] [code = PREVNAR >= 65 Medici ne (PCV13)] Future Scheduled Test FLU VACCINE > 6 MONTHS [facility] [code = FLU VACCINE > 6 Medi cine MONTHS] Encounters Start End Encounter Admission Attending Care Care Encounter Source Date/Time Date/Time Type Type Clinicians Facility Department ID 2018-12-22 2018-12-22 Office ALEJO Antonio [id number] [place] [address] 09:39:21 10:09:21 Visit Meng AMBULATOR [id number] College Y [id number] of [id number] Medi bradley 700 e 2018-12-22 2018-12-22 Office ALEJO Antonio [id number] 09:39:21 10:09:21 Visit Meng AMBULATOR [id number] Y [id number] [id number] 700 2018-12-14 2018-12-14 Office ALEJO Berumen [id number] 57 [place] 13:07:39 15:30:38 Visit Richard AMBULATOR [id number] College Y [id number] of [id number] Medi bradley 800 e 2018-12-14 2018-12-14 Office ALEJO Berumen [id number] 57 13:07:39 15:30:38 Visit Richard AMBULATOR [id number] Y [id number] [id number] Results Test Description Test Time Test Comments Results Result Comments Source HEMOGLOBIN A1C 2018-10-26 14:18:00 Test Item Value Reference Range Interpretation Comme nts HEMOGLOBIN A1C (BEAKER) (test code = 368) 5.7 % 4.3-6.1 [id number] 13:16:00 Test Item Value Reference Range Interpretation Comments RPR SCREEN (BEAKER) (test code = Nonreactive Nonreactive 420) VITAMIN [id number] 05:17:00 Test Item Value Reference Range Interpretation Comments VITAMIN B12 (BEAKER) (test code = 319 pg/mL 213-816 774) FOLATE, [id number] 05:17:00 Test Item Value Reference Range Interpretation Comments FOLATE (BEAKER) (test code = 362) 17.0 ng/mL >=7.0 TROPONIN [id number] 03:27:00 Test Item Value Reference Range Interpretation Comments TROPONIN I (BEAKER) (test code = 397) < ng/mL 0.00-0.03 Troponin I (TnI) levels [...] failure, acidosis, acute neurological disease, and persistent tachyarrhythmia.[id number] 03:21:00 Test Item Value Reference Range Interpretation Comments MAGNESIUM (BEAKER) (test code = 2.1 mg/dL 1.6-2.6 627) BASIC METABOLIC [id number] 03:21:00 Test Item Value Reference Range Interpretation Comments SODIUM (BEAKER) 138 meq/L 136-145 (test code = 381) POTASSIUM (BEAKER) 3.7 meq/L 3.5-5.1 (test code = 379) CHLORIDE (BEAKER) 106 meq/L 98-107 (test code = 382) CO2 (BEAKER) (test 23 meq/L 22-29 code = 355) BLOOD UREA NITROGEN 11 mg/dL 7-21 (BEAKER) (test code = 354) CREATININE (BEAKER) 0.68 mg/dL 0.57-1.25 (test code = 358) GLUCOSE RANDOM 122 mg/dL 70-105 H (BEAKER) (test code = 652) CALCIUM (BEAKER) 9.0 mg/dL 8.4-10.2 (test code = 697) EGFR (BEAKER) (test 85 mL/min/1.73 ESTIMA SHANON GFR IS code = 1092) sq m NOT ACCURATE CREATININE CLEARANCE IN PREDICTING GLOMERULAR FILTRATION RATE . ESTIMATED GFR I S NOT APPLICABLE FOR DIALYSIS PATIEN TS. LIPID [id number] 03:21:00 Test Item Value Reference Range Interpretation Comments TRIGLYCERIDES (BEAKER) (test code = 133 mg/dL 540) CHOLESTEROL (BEAKER) (test code = 217 mg/dL 631) HDL CHOLESTEROL (BEAKER) (test code 52 mg/dL = 976) LDL CHOLESTEROL CALCULATED (BEAKER) 138 mg/dL (test code = 633) Triglyceride Reference Range: Low Risk <150 Borderline 150-199 High Risk 200-499 Very High Risk >=500Cholesterol Reference Range: Low Risk <200 Borderline 200-239 High Risk >240HDL Cholesterol Reference Range: Low Risk >=60 High Risk <40LDL Cholesterol Reference Range: Optimal <100 Near Optimal 100-129 Borderline 130-159 High 160-189 Very High >=190CREATINE KINASE (CK)2018-10-26 03:21:00 Test Item Value Reference Range Interpretation Comments CREATINE KINASE TOTAL (BEAKER) (test 120 U/L 29-200 code = 380) TSH/FREE T4 IF [id number] 01:24:00 Test Item Value Reference Range Interpretation Comments THYROID STIMULATING HORMONE 0.75 uIU/mL 0.35-4.94 (BEAKER) (test code = 772)
[2021-09-03 13:13] VITALS: BMI 32.9
--- NOTE | 2021-09-03 13:32 | RAD REPORT ---
EXAM DESCRIPTION: RAD - Chest Pa And Lat (2 Views) - 09/03/2021 1:26 pm CLINICAL HISTORY: pain COMPARISON: Chest Pa And Lat (2 Views) dated 11/14/2020; Chest Pa And Lat (2 Views) dated 04/13/2019; Chest Single View dated 10/25/2018; CHEST SINGLE VIEW dated 07/18/2012 FINDINGS: Lines: None. Lungs: No evidence of edema or pneumonia. Scarring at the left lung base. Pleural: No significant pleural effusions or pneumothorax. Cardiac: The heart size is within normal limits. Bones: No acute fractures. Other: IMPRESSION: No acute cardiopulmonary disease.
[2021-09-03 14:47] LABS: Absolute Lymphocytes (CBC) 2.5 K/uL (0.7-4.9); MPV 9.4 fL (7.6-11.3); RBC Red Blood Cell Count 4.86 M/uL (3.86-4.86)
[2021-09-03 14:56] LABS: ALT/SGPT 26 U/L (12-78); AST/SGOT 19 U/L (15-37); Albumin 3.7 g/dL (3.4-5.0); Alkaline Phosphatase 94 U/L (45-117); BUN Blood Urea Nitrogen 17 mg/dL (7-18); Bicarbonate 24 mmol/L (21-32); Bilirubin Total 0.4 mg/dL (0.2-1.0); Glucose Level 96 mg/dL (74-106); Magnesium 2.3 mg/dL (1.8-2.4); Potassium 3.7 mmol/L (3.5-5.1); Protein, Total 7.3 g/dL (6.4-8.2); Sodium Level 140 mmol/L (136-145)
[2021-09-03 14:58] LABS: Bilirubin Direct < 0.1 mg/dL (0-0.2)
[2021-09-03 15:17] LABS: Phosphorus 4.1 mg/dL (2.5-4.9)
[2021-09-03 15:19] LABS: Thyroid Stimulating Hormone 5.77 uIU/mL (0.360-3.740)
[2021-09-03] MEDS ORDERED: POLYETHYL GLY 3350 17 GM/DOSE PO PRN (18:00)
[2021-09-03] MEDS ORDERED: NACHLORIDE 0.45% 1,000 ML IV SCH (18:00)
[2021-09-03] MEDS ORDERED: DIPHENHYDRAMINE 25 MG TAB/CAP PO PRN (18:00)
[2021-09-03] MEDS ORDERED: ONDANSETRON 4 MG (ODT) TAB PO PRN (18:00)
[2021-09-03] MEDS ORDERED: ACETAMINOPHEN 325 MG TABLET PO PRN (18:00)
[2021-09-03] MEDS ORDERED: ONDANSETRON 4 MG/2 ML VIAL IV PRN (18:00)
[2021-09-03] MEDS ORDERED: LOPERAMIDE HCL 2 MG CAPSULE PO PRN (18:00)
--- NOTE | 2021-09-03 18:20 | RAD REPORT ---
EXAM DESCRIPTION: US - Abdomen Exam Complete - 09/03/2021 5:52 pm CLINICAL HISTORY: Abdominal pain COMPARISON: Abdomen Exam Complete dated 04/28/2018 FINDINGS: No aortic aneurysm. The liver has a homogeneous echotexture. The portal vein is patent. The IVC at the level of the liver is unremarkable. No ascites. The gallbladder is unremarkable. No pericholecystic fluid, wall thickening, or gallstones identified. No biliary ductal dilatation. The pancreas was grossly unremarkable. The right kidney measures 9.7 cm normal echotexture. No hydronephrosis. No suspicious masses. The left kidney measures 10.1 cm with a normal echotexture. No hydronephrosis. No suspicious masses. The spleen is unremarkable. IMPRESSION: Abdominal ultrasound is within normal limits. Specifically, no evidence of cholelithiasi s or acute cholecystitis. No biliary ductal dilatation.
[2021-09-03] MEDS: CEFOXITIN 1 GM in NA CHLORIDE 0.9% 100 ML IV SCH (18:54)
[2021-09-03] MEDS: METOPROLOL TAR 25 MG TAB PO SCH (21:01)
[2021-09-04 02:33] VITALS: O2SAT 98
[2021-09-04] MEDS ORDERED: CEFOXITIN SODIUM 1 GM/VIAL ONE (05:18)
[2021-09-04] MEDS ORDERED: NA CHLORIDE 0.9% 100 ML ONE (05:24)
[2021-09-04 05:51] LABS: Urine Appearance Clear (Clear); Urine Bilirubin Negative (Negative); Urine Blood Negative (Negative); Urine Color Yellow (Yellow); Urine Glucose Negative (Negative); Urine Protein Negative (Negative); Urine Urobilinogen 0.2 mg/dL (0.2-1.0)
[2021-09-04 05:53] LABS: Urine Microscopic Reflex ORDER UMIC
[2021-09-04] MEDS: CEFOXITIN 1 GM in NA CHLORIDE 0.9% 100 ML IV SCH (06:05)
[2021-09-04 06:14] LABS: Urine Amorphous Sediment 1+ /HPF (NONE SEEN); Urine Bacteria 20-50 /HPF (<20); Urine Mucus 2+ /HPF (NONE SEEN); Urine RBC <5 /HPF (NONE SEEN); Urine Yeast FEW (NONE SEEN)
[2021-09-04] MEDS ORDERED: LEVOTHYROXINE SOD 0.112 MG TAB PO SCH (06:30)
[2021-09-04] MEDS ORDERED: LEVOTHYROXINE PO SCH (09:00)
[2021-09-04] MEDS ORDERED: METOPROLOL TARTRATE 25 MG PO SCH (09:00)
[2021-09-04] MEDS ORDERED: ENOXAPARIN 40 MG/0.4 ML SQ SCH (09:00)
[2021-09-04] MEDS: METOPROLOL TAR 25 MG TAB PO SCH (09:11)
[2021-09-04] MEDS ORDERED: Ringers Lactate 1,000 ML IV ONE (13:00)
--- NOTE | 2021-09-04 13:05 | RAD REPORT ---
EXAM DESCRIPTION: NM - Hepatobiliary System Imagin - 09/04/2021 12:54 pm CLINICAL HISTORY: Cholelithiasis COMPARISON: No comparisons TECHNIQUE: The patient was administered approximately 7 mCi Tc99m Choletec. Imaging of the right upp er quadrant was performed initially for up to 60 minutes. Gallbladder ejection fraction determination was then performed utilizing ice cream. . FINDINGS: Normal hepatic uptake and excretion with appropriate clearance of background blood pool ac tivity. Normal visualization of biliary and small bowel activity. Gallbladder visualizes within normal time limits. The calculated ejection fraction is 75% (normal gre ater than 35%). Subjective pain reported by the patient: Pre-procedure - 0 During or subsequent to ice cream - 0 IMPRESSION: Patient cystic duct and patent sphincter of Oddi. No delay in visualization of the gallb ladder, biliary tree, or duodenum. Ejection fraction is 75% (normal greater than 35%).
--- NOTE | 2021-09-04 13:20 | P.PN ---
Subjective Date of Service: 09/04/21 Chief Complaint: PAIN RUQ Subjective: No new changes HIDA SCAN WAS DONE AT 11. WE ARE WAITING FOR RESULTS. DR. CORTÉS CALLED BY DR DONIS. SURGERY IF IT IS POSITIVE. SHE MAY NEED MORE OP TESTING IF NOW. SHEIS AWARE. Physical Examination - Vital Signs Temperature: 98.0 F Blood Pressure: 130/68 Pulse: 65 Respirations: 16 Pulse Ox (%): 97 - Physical Exam General: Mild distress HEENT: Atraumatic, PERRLA, EOMI Neck: Supple, JVD not distended Respiratory: Clear to auscultation bilaterally, Normal air movement Cardiovascular: Regular rate/rhythm, Normal S1 S2 Gastrointestinal: Normal bowel sounds, No tenderness, Tenderness (RUQ) Musculoskeletal: No tenderness Integumentary: No rashes Neurological: Normal speech, Normal tone, Normal affect Lymphatics: No axilla or inguinal lymphadenopathy - Studies Laboratory Data (last 24 hrs) 09/03/21 14:14: Phosphorus 4.1, Amylase 62, Lipase 148 09/03/21 14:14: APTT 33.9 09/03/21 14:14: Sodium 140, Potassium 3.7, BUN 17, Creatinine 0.65, Glucose 96, Magnesium 2.3, Total Bilirubin 0.4, AST 19, ALT 26, Alkaline Phosphatase 94 09/03/21 14:14: WBC 10.3, Hgb 14.4, Hct 43.0, Plt Count 191 Medications List Reviewed: Yes Assessment And Plan - Current Problems (Diagnosis) (1) Recurrent biliary colic Current Visit: Yes Status: Acute Plan: SONOGRAM NEG. HIDA PENDING. CT FROM PAST REPORT SENT TO DR. Page
[2021-09-04] MEDS ORDERED: NA CIT/CITRIC AC 30 ML ORAL UDC ONE (13:22)
--- NOTE | 2021-09-04 15:03 | CON ---
Date of Consultation: 09/04/2021 Reason For Service: Right upper quadrant abdominal pain, biliary colic. History Of Present Illness: This is the case of a 75-year-old patient who comes to us with epigastri c right upper quadrant pain radiating to the back, associated with nausea, vomiting, and some yellow on and off soft stool. She was diagnosed in the past as per patient with a CAT scan that showed gall stones. She has typical findings of a biliary colic. She was admitted to the hospital. She denies any dysuria, hematuria, hematochezia, melena. Denies any recent traveling out of the country. Denie s any family member sick at home. Allergies: LATEX. Past Medical History: Include thyroid disease, vertigo. Past Surgical History: Hysterectomy and thyroidectomy. Social History: She does not smoke. She does not drink alcohol. Family History: Noncontributory. Review of Systems: See H and P. Ten points otherwise unremarkable. Physical Examination: General: The patient is awake, alert. HEENT: Pupils equal and reactive, anicteric. Neck: Supple. Chest: Clear. Abdomen: Epigastric right upper quadrant tenderness. No peritonitis. Breasts: Deferred. Rectal: Deferred. Pelvic: Deferred. Extremities: Good capillary refill. Ultrasound read by Dr. Ortiz today, no evidence of cholelithiasis, which once again goes against the pr evious CT scan that she mentioned. Laboratory Data: Blood work shows WBC count of 10.3 with hemoglobin of 14.4. Chloride is 109. Assessment: 75-year-old patient comes to us with sign and symptoms of biliary colic, although the fi rst test done, ultrasound did not show any stones. This pain has been on and off for the last few mo nths. The last 2 weeks has been worse, almost every day, is mainly postprandial, and so I agree with initial working diagnosis. He had some GI workup in the past, although she does not remember all the details of it. We mean by that an endoscopy. Plan: We are going to do a HIDA scan today to look for biliary dyskinesia and acute cholecystitis. We will follow the patient with you. The laparoscopic possible open cholecystectomy in case the case comes back positive. All the benefits, alternatives, and risks fully explained to the patient which include, but not limited to infection, bleeding, damage to adjacent structures, anesthesia complicat ion, choledocholithiasis, bile leak, pancreatitis, DC, and even . NICOLE/OMAR Voice ID: [id number] Report ID: [id number]
[2021-09-04 16:23] VITALS: BP 124/57; TEMP 97.8
--- NOTE | 2021-09-04 19:48 | PN ---
Date of Progress Note: 09/04/2021 Subjective: This is followup note for today. Patient had HIDA scan done today shows ejection fracti on of 75% and she has no duplication of symptoms, now this was done with ice cream. We have limitati ons since we have no CCK available in the hospital. I discussed with Dr. Ortiz also, his sonogram from yesterday, Dr. Horner, CAT scan that shows cholelithiasis previously, multiple stones, was done about 2 years ago, now the new sonograms they could not reproduce the same. Right now, she is stable. Sh e feels better. She has no problems at this moment. So I discussed the case with Dr. Horner. We are going to then hold the surgery. We will follow her electively low-fat diet. She is due for colonos copy, so we may see if the GI also decide to do an EGD. If we see that, that does not find the etiol ogy of her pain, clinically she is resembling somebody with biliary colic, Dr. Horner discover. We mi t have to repeat the ultrasound or the repeat the HIDA scan properly with CCK to see if we can get more information that justify cholecystectomy. The patient understands this. She would like to go h ome too. NICOLE/OMAR Voice ID: [id number] Report ID: [id number]
[2021-09-08 01:31] LABS: Vitamin D 1,25-Dihydroxy Total 69 pg/mL (18-72); Vitamin D,1,25-OH2, D2 <8 pg/mL
== END 2021-09-04 16:47 | disposition home or self-care (01) ==
LOC: 2ND 12:32
PROVIDERS: ADMIT Internal Medicine; ATTEND Internal Medicine
DX: K80.50 Calculus of bile duct without cholangitis or cholecystitis without obstruction (principal); K21.9 Gastro-esophageal reflux disease without esophagitis; M85.80 Other specified disorders of bone density and structure, unspecified site; E06.3 Autoimmune thyroiditis; E89.0 Postprocedural hypothyroidism; K76.89 Other specified diseases of liver; Z86.73 Personal history of transient ischemic attack (TIA), and cerebral infarction without residual deficits; Z79.899 Other long term (current) drug therapy; Z88.7 Allergy status to serum and vaccine; Z88.8 Allergy status to other drugs, medicaments and biological substances; Z91.040 Latex allergy status; Z20.822 Contact with and (suspected) exposure to COVID-19
CPT/HCPCS: 87040; 87088; 85025; 87086; 80048; 36415; 82150; 83735; 84100; 80076; 85730; 82652; 84443; 84439; 82607; 83690; 71046; 76700; 78226; U0003; J0694 ×2; A9537; G0379; G0378 ×2; 81003; 81015; J7120